=== PATIENT | female | born 1930 | race Caucasian/White ===

== ENCOUNTER 2016-05-01 09:15 | Observation (INO) ==
--- NOTE | 2016-05-01 09:41 | Emergency Department Note ---
Disposition Clinical Impression: Pneumonia, Headache, Weakness, Knee pain, right, Hypoxemia, Frail elderly, UTI (urinary tract infection), Abnormal EKG, Elevated blood pressure reading Disposition: Admitted As Inpatient Condition: Fair Referrals: NO,PCP [Primary Care Provider] - Forms: Work/School Release, ED Satisfaction Letter General Adult HPI - General Chief complaint: ED General Medical Stated complaint: right leg pain/JEROME Time Seen by Provider: 05/01/16 09:38 Source: EMS Limitations: no limitations - History of Present Illness HPI Narrative: 85-year-old female from assisted living reports in the ER via EMS. She came in with her daughter. There are concerns that the patient has knee pain and a headache. The patient describes a cough and general weakness. She is usually very social and active but is been weaker over the last few days. There is no history of syncope or fall. No trauma. No chest pain or coughing of blood. No leg swelling. No fevers. There is no strip for insurance of breath. She has had intermittent headaches over the last few weeks. Mostly on the right side. There is been no trouble moving the arms or legs independently, no unilateral numbness or weakness or dysarthria or confusion. The patient reports she was recently extensively evaluated and had an MRI of her brain and her daughter reports that the patient's only medical problems or reflux and hypertension. There is no history of CAD CHF COPD or oxygen requirement. The patient has not had previous strokes or DVT or PE. The patient has not had any urinary symptoms. There is no history of acute back pain or fall. Generalized weakness associated with a cough headache and right lower extremity pain particularly about the knee are reported. There is been no coldness blueness numbness or weakness the arms or legs. Pain Scale: 7 - Related Data Home Medications Medication Instructions Recorded Confirmed Amlodipine [Norvasc] 5 mg PO DAILY 05/01/16 05/01/16 Aspirin 325 mg PO DAILY 05/01/16 05/01/16 Cholecalciferol (D-3) [Vitamin D] 1,000 unit PO DAILY 05/01/16 05/01/16 Cyanocobalamin (Vitamin B-12) 1,000 mcg SL DAILY 05/01/16 05/01/16 [Vitamin B-12] Omeprazole [PriLOSEC] 20 mg PO BID 05/01/16 05/01/16 Allergies Allergy/AdvReac Type Severity Reaction Status Date / Time No Known Allergies Allergy Verified 05/01/16 09:16 All systems ED: reviewed and negative except as stated. Past Medical History - Past Medical History Medical history: Reports: fibromyalgia, GERD, hypertension Psychiatric history: Reports: no psych history - Social History Smoking Status: Never smoker Smokeless Tobacco Status: No Alcohol use: Reports: none Drug use: Reports: none Physical Exam - General Limitations: no limitations General appearance: alert, in no apparent distress - Head Head exam: atraumatic, normocephalic, normal inspection - Eye Eye exam: Present: normal appearance, PERRL, EOMI - ENT ENT exam: normal exam, normal oropharynx, mucous membranes moist - Neck Neck exam: Present: normal inspection, full ROM, trachea midline. Absent: tenderness, meningismus - Chest Chest inspection: Present: symmetric chest wall rise. Absent: tenderness - Respiratory Respiratory exam: Present: normal lung sounds bilaterally. Absent: respiratory distress - Cardiovascular Cardiovascular exam: Present: regular rate, normal rhythm, normal heart sounds - Abdominal Exam Abdominal exam: Present: soft, Non-Tender, normal bowel sounds. Absent: tenderness, distention, guarding, rebound, rigidity, trauma, pulsatile mass - Extremities Exam Extremities exam: Present: normal inspection, normal capillary refill, other ( All extremities are warm and well perfused and atraumatic with good muscle strength and sensation throughout. There is some pain at the right knee without evidence of joint stability or trauma. There is a good range of motion throughout all the major joints in all 4 extremities apart from the right knee. There is no evidence of acute neuromuscular or neurovascular abnormality in any extremity.). Absent: pedal edema, joint swelling, calf tenderness - Expanded Lower Extremity Exam Lower leg exam: Absent: Homans' sign Neurovascular/Tendon exam: Absent: pulse deficit, motor deficit, sensory deficit , tendon deficit, extremity cold to touch, pallor - Back Exam Back exam: Present: normal inspection, full ROM. Absent: tenderness, CVA tenderness (R), CVA tenderness (L), vertebral tenderness - Neurological Exam Neurological exam: Present: alert, oriented X3, CN II-XII intact. Absent: motor sensory deficit - Psychiatric Psychiatric exam: Present: normal affect, normal mood - Skin Skin exam: Present: warm, dry, intact, normal color. Absent: rash, cyanosis, diaphoresis, erythema, pallor, mottled Course Vital Signs Temperature 98 F 05/01/16 09:17 Pulse Rate 82 05/01/16 09:17 Respiratory Rate 18 05/01/16 09:17 Blood Pressure 151/69 05/01/16 09:17 O2 Sat by Pulse Oximetry 90 L 05/01/16 09:17 Temperature 98 F 05/01/16 09:22 Pulse Rate 82 05/01/16 09:22 Respiratory Rate 18 05/01/16 09:22 Blood Pressure 151/69 05/01/16 09:22 O2 Sat by Pulse Oximetry 90 L 05/01/16 09:22 Oxygen Delivery Oxygen Delivery Room Air Medical Decision Making - MDM Narrative Medical decision making narrative: The patient is elderly, her oxygen saturations on room air were as low as 89%, oxygen was supplied, she appears to have pneumonitis. The patient complained of a headache, no focal neurologic defects, or positive findings on CT scan are noted. She has had some knee pain, it seems to be musculoskeletal/mechanical. The daughter reports the patient was walking around a lot a few days ago. She did not fall or injure herself. Given the patient is elderly, has significant hypoxemia, has been weak, and appears to have pneumonitis, I think it would be appropriate to admit the patient to the hospital. I reviewed the case with the hospitalist on-call. - Lab Data Lab results reviewed: Yes I reviewed the patient's lab results. Result diagrams: 05/01/16 10:56 05/01/16 10:56 Lab Results 05/01/16 05/01/16 05/01/16 Range/Units 09:55 10:56 10:56 WBC 8.0 (4.3-11.1) K/mcL RBC 5.08 H (3.82-4.97) M/mcL Hgb 14.0 (11.5-15.4) g/dL Hct 43.2 (35.3-44.9) % MCV 85.0 (83.0-100.0) fL MCH 27.6 L (28.0-33.3) pg MCHC 32.4 (31.6-35.5) g/dL RDW 12.9 (11.5-14.5) % Plt Count 303 (140-400) K/mcL MPV 10.4 (9.4-12.4) fL Immature Gran % 0.4 (0-4) % Seg Neutrophils % 71.2 % Lymphocytes % 18.6 % Monocytes % 7.2 % Eosinophils % 2.0 % Basophils % 0.6 % Neutrophils # 5.7 (1.6-8.9) K/mcL Lymphocytes # 1.5 (0.6-4.6) K/mcL Monocytes # 0.6 (0.0-1.3) K/mcL Eosinophils # 0.2 (0.0-0.6) K/mcL Basophils # 0.1 (0.0-0.2) K/mcL Sodium (136-145) mEq/L Potassium (3.5-4.5) mEq/L Chloride (98-109) mEq/L Carbon Dioxide (19-29) mEq/L BUN (7-20) mg/dL Creatinine (0.57-1.11) mg/dL Est GFR ( Amer) (> 60) Est GFR (Non-Af Amer) (> 60) BUN/Creatinine Ratio (6-26) Glucose (70-99) mg/dL Calculated Osmolality (280-300) Lactic Acid (0.5-2.2) mmol/L Calcium (8.6-10.8) mg/dL Phosphorus (2.3-4.7) mg/dL Magnesium (1.6-2.6) mg/dL Total Bilirubin (0.2-1.2) mg/dL AST (5-34) Units/L ALT (0-55) Units/L Alkaline Phosphatase (38-126) Units/L Creatine Kinase (29-168) Units/L Troponin I 0.01 (0-0.03) ng/mL C-Reactive Protein (Less than 5) mg/L B-Natriuretic Peptide (0-100) pg/mL Serum Total Protein (6.0-8.3) g/dL Albumin (3.5-5.0) g/dL Globulin (2.4-3.5) g/dL Albumin/Globulin Ratio (1.1-2.2) Urine Color Yellow (Yellow) Urine Clarity Cloudy A (Clear) Urine pH 6.5 (5.0-8.0) pH Units Ur Specific [place] 1.016 (1.010-1.025) Urine Protein Negative (Neg-Trace) mg/dL Urine Glucose (UA) Normal (Normal) mg/dL Urine Ketones Negative (Negative) mg/dL Urine Blood Negative (Negative) Urine Nitrite Negative (Negative) Urine Bilirubin Negative (Negative) Urine Urobilinogen Normal (Normal) mg/dL Ur Leukocyte Esterase Moderate H (Negative) Urine Microscopic RBC 0-3 (0-3) per hpf Urine Microscopic WBC 15-30 H (0-3) per hpf Ur Squamous Epith Cells Many H (None-Few) per lpf Urine Bacteria None Seen (None-Few) per hpf Hyaline Casts None Seen (None-Few) per lpf Ur Culture Indicated? YES A (NO) 05/01/16 05/01/16 05/01/16 Range/Units 10:56 10:56 10:56 WBC (4.3-11.1) K/mcL RBC (3.82-4.97) M/mcL Hgb (11.5-15.4) g/dL Hct (35.3-44.9) % MCV (83.0-100.0) fL MCH (28.0-33.3) pg MCHC (31.6-35.5) g/dL RDW (11.5-14.5) % Plt Count (140-400) K/mcL MPV (9.4-12.4) fL Immature Gran % (0-4) % Seg Neutrophils % % Lymphocytes % % Monocytes % % Eosinophils % % Basophils % % Neutrophils # (1.6-8.9) K/mcL Lymphocytes # (0.6-4.6) K/mcL Monocytes # (0.0-1.3) K/mcL Eosinophils # (0.0-0.6) K/mcL Basophils # (0.0-0.2) K/mcL Sodium 140 (136-145) mEq/L Potassium 4.1 (3.5-4.5) mEq/L Chloride 105 (98-109) mEq/L Carbon Dioxide 24 (19-29) mEq/L BUN 9 (7-20) mg/dL Creatinine 0.81 (0.57-1.11) mg/dL Est GFR ( Amer) > 60 (> 60) Est GFR (Non-Af Amer) > 60 (> 60) BUN/Creatinine Ratio 11 (6-26) Glucose 104 H (70-99) mg/dL Calculated Osmolality 289 (280-300) Lactic Acid 1.5 (0.5-2.2) mmol/L Calcium 9.5 (8.6-10.8) mg/dL Phosphorus 3.9 (2.3-4.7) mg/dL Magnesium 2.0 (1.6-2.6) mg/dL Total Bilirubin 0.5 (0.2-1.2) mg/dL AST 21 (5-34) Units/L ALT 26 (0-55) Units/L Alkaline Phosphatase 63 (38-126) Units/L Creatine Kinase 31 (29-168) Units/L Troponin I (0-0.03) ng/mL C-Reactive Protein 1 (Less than 5) mg/L B-Natriuretic Peptide 33 (0-100) pg/mL Serum Total Protein 7.5 (6.0-8.3) g/dL Albumin 3.8 (3.5-5.0) g/dL Globulin 3.7 H (2.4-3.5) g/dL Albumin/Globulin Ratio 1.0 L (1.1-2.2) Urine Color (Yellow) Urine Clarity (Clear) Urine pH (5.0-8.0) pH Units Ur Specific [place] (1.010-1.025) Urine Protein (Neg-Trace) mg/dL Urine Glucose (UA) (Normal) mg/dL Urine Ketones (Negative) mg/dL Urine Blood (Negative) Urine Nitrite (Negative) Urine Bilirubin (Negative) Urine Urobilinogen (Normal) mg/dL Ur Leukocyte Esterase (Negative) Urine Microscopic RBC (0-3) per hpf Urine Microscopic WBC (0-3) per hpf Ur Squamous Epith Cells (None-Few) per lpf Urine Bacteria (None-Few) per hpf Hyaline Casts (None-Few) per lpf Ur Culture Indicated? (NO) - Radiology Data Radiology results reviewed: Yes I reviewed the patient's radiology results.
[2016-05-01 10:01] LABS: Bilirubin,Urine Negative (Negative); Blood,Urine Negative (Negative); Clarity,Urine Cloudy (Clear); Color,Urine Yellow (Yellow); Glucose,Urine (UA) Normal (Normal); Ketones,Urine Negative (Negative); Leukocyte Esterase,Urine Moderate (Negative); Nitrite,Urine Negative (Negative); PH,Urine 6.5 pH Units (5.0-8.0); Protein,Urine Negative (Neg-Trace); Specific Gravity,Urine 1.016 (1.010-1.025); Urobilinogen,Urine Normal (Normal)
[2016-05-01 10:03] LABS: Bacteria,Urine None Seen per hpf (None-Few); Hyaline Casts,Urine None Seen per lpf (None-Few); RBC,Urine 0-3 per hpf (0-3); Squamous Epithelial Cell,Urine Many per lpf (None-Few); WBC,Urine 15-30 per hpf (0-3)
[2016-05-01] MEDS ORDERED: 0.9 % Sodium Chloride 1,000 ML IVC ONE (11:09)
[2016-05-01] MEDS ORDERED: Levofloxacin 750 MG/150 ML 750 MG/150 ML BAG IVPB ONE (11:09)
[2016-05-01 11:18] LABS: Basophils # 0.1 K/mcL (0.0-0.2); Basophils % 0.6 %; Eosinophils # 0.2 K/mcL (0.0-0.6); Hematocrit 43.2 % (35.3-44.9); Immature Granulocytes % 0.4 % (0-4); Lymphocytes # 1.5 K/mcL (0.6-4.6); Lymphocytes % 18.6 %; Mean Corpuscular HGB Conc 32.4 g/dL (31.6-35.5); Mean Corpuscular Hemoglobin 27.6 pg (28.0-33.3); Mean Platelet Volume 10.4 fL (9.4-12.4); Monocytes # 0.6 K/mcL (0.0-1.3); Monocytes % 7.2 %; Neutrophils # 5.7 K/mcL (1.6-8.9); Platelet Count 303 K/mcL (140-400); Red Blood Count 5.08 M/mcL (3.82-4.97); Red Cell Distribution Width 12.9 % (11.5-14.5); Segmented Neutrophils % 71.2 %
[2016-05-01 11:43] LABS: Alanine Aminotransferase 26 Units/L (0-55); Albumin 3.8 g/dL (3.5-5.0); Alkaline Phosphatase 63 Units/L (38-126); Aspartate Amino Transferase 21 Units/L (5-34); BUN/Creatinine Ratio 11 (6-26); Bilirubin,Total 0.5 mg/dL (0.2-1.2); Blood Urea Nitrogen 9 mg/dL (7-20); C-Reactive Protein 1 mg/L (Less than 5); Calcium 9.5 mg/dL (8.6-10.8); Carbon Dioxide 24 mEq/L (19-29); Chloride 105 mEq/L (98-109); Creatine Kinase 31 Units/L (29-168); Globulin 3.7 g/dL (2.4-3.5); Glucose 104 mg/dL (70-99); Osmolality,Calculated 289 (280-300); Phosphorous 3.9 mg/dL (2.3-4.7); Potassium 4.1 mEq/L (3.5-4.5); Sodium 140 mEq/L (136-145); Total Protein 7.5 g/dL (6.0-8.3); eGFR For African Americans > 60 (> 60); eGFR For Non-African Americans > 60 (> 60)
[2016-05-01] MEDS ORDERED: Naloxone 0.4 MG/ML INJ IVP PRN (13:06)
--- NOTE | 2016-05-01 13:41 | Internal Med History&Physical ---
<Lina Moran M - Last Filed: 05/01/16 22:38> Date of Encounter: 05/01/16 Time of Encounter: 13:38 Assessment and Plan (1) Pneumonia Current visit: Yes Status: Acute Patient presented with weakness and productive cough. She was satting 89-90% on room air. CXR revealed Left lower lobe pneumonia. IVPB Levaquin daily titrate O2 to maintain oxygen saturation > 92% IV fluids 0.9NS at 100mL/hr Qualifiers: Pneumonia type: due to unspecified organism Laterality: left Lung location: lower lobe of lung Qualified Code(s): J18.1 - Lobar pneumonia, unspecified organism (2) Headache Current visit: Yes Status: Acute She reports that when she woke up this morning she had a headache on the right side of her head, her right arm hurt in her right leg hurt as well. She also reports she just did not feel like herself. Patient reports head now resolved. Head CT negative for acute abnormality PRN tyelenol for headache Qualifiers: Headache type: unspecified Headache chronicity pattern: acute headache Intractability: not intractable Qualified Code(s): R51 - Headache (3) Hypoxemia Current visit: Yes Status: Acute Patient presented with productive cough. Found to be satting 89-90% on room air. No history of COPD. CXR revealed Left lower lobe opacity. Saturations improved to 98-100% on 2L NC Will treat pneumonia with IVPB levaquin. titrate oxygen to maintain O2 saturation > 92%. (4) Knee pain, right Current visit: Yes Status: Acute Patient reports waking up this morning with pain in right leg, right arm and right head. She reports a history of fibromyalgia. Xray of right knee and femur showed no acute osseous abnormality, and moderate right hip degenerative changes with mild to moderate right knee degenerative changes. Tylenol PRN for pain Qualifiers: Chronicity: acute Qualified Code(s): M25.561 - Pain in right knee (5) UTI (urinary tract infection) Current visit: Yes Status: Suspected Patient denies any dysuria. UA showed positive leuks, Positive WBC, but also positive epithelials; may be contaminated. Await culture results. Qualifiers: Urinary tract infection type: acute cystitis Hematuria presence: without hematuria Qualified Code(s): N30.00 - Acute cystitis without hematuria (6) Weakness Current visit: Yes Status: Acute Patient reports waking up with generalized weakness and pain in her right head, right arm and right leg. She denies any fall or injury. She reports history of fibromyalgia, but does not take anything for it anymore. She has a family history of CVA, with both parents cause of . On exam, equal strength bilaterally, steady gain, negative romberg. Weakness likely related to her diagnosis of pneumonia, but will rule out CVA. 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 Correa is a 85 year old female with hypertension, GERD, fibromyalgia who is brought in this morning from her assisted living facility by her daughter with complaints of headache, knee pain, weakness. She reports she was feeling well and last night felt like she had knee pain this morning when she woke up she had a headache on the right side of her head, her right leg hurt, and she felt weak all over. She reports she did not feel like herself, but was unable to express what that meant. She denies chest pain, palpitations, shortness of breath. She does reports she has been coughing the last several days and cough is productive of thick yellow sputum. She denies any fever, chills, sweats. Evaluation in the emergency room revealed that she was hypoxic, satting 89-90% on room air. Head CT was obtained and showed no acute abnormality. X-rays of the right knee and right femur. Chest x-ray showed left lower lobe opacity. White blood cell count was normal at 8.0. Patient was afebrile. EKG showed sinus rhythm. On exam, patient alert and oriented, in no distress. Lung with mild rhonchi on the left. Heart with regular rate and rhythm. She is satting 98-100% on 2L NC. Past Med Surg Social Fam HX - Past Medical History Medical history: fibromyalgia, GERD, hypertension Psychiatric history: no psych history - Past Surgical History Surgical History: breast surgery (breast reduction), cholecystectomy, other ( bladder sling) - Social History Smoking Status: Never smoker Smokeless Tobacco Status: No Alcohol use: none Drug use: none Current living situation: Assisted Living - Family History Mother Living Status: Age at : 85 Cause of : CVA Father Living Status: Cause of : CVA Brother Living Status: Cause of : cancer Internal Medicine - H&P: Meds Amlodipine [Norvasc] 5 mg PO DAILY 05/01/16 [History] Aspirin 325 mg PO DAILY 05/01/16 [History] Cholecalciferol (D-3) [Vitamin D] 1,000 unit PO DAILY 05/01/16 [History] Cyanocobalamin (Vitamin B-12) [Vitamin B-12] 1,000 mcg SL DAILY 05/01/16 [ History] Omeprazole [PriLOSEC] 20 mg PO BID 05/01/16 [History] Allergies No Known Allergies Allergy (Verified 05/01/16 09:16) All Systems PM: A 10-system review of systems was performed and is negative for pertinent findings except as documented above in the HPI. - Constitutional Constitutional: weakness, no chills, no fever(s), no night sweats - EENT Eyes: no change in vision, no discharge, no pain, no photophobia Ears: no ear discharge, no ear pain, no tinnitus Nose, mouth and throat: no dysphagia, no nasal discharge, no neck pain, no sore throat - Cardiovascular Cardiovascular ROS IM: no chest pain, no diaphoresis, no dyspnea, no lightheadedness, no palpitations, no syncope - Respiratory Respiratory: cough, chest congestion, excessive phlegm production, no dyspnea, no pain on inspiration - Gastrointestinal Gastrointestinal: no abdominal pain, no diarrhea, no hematemesis, no hematochezia, no melena, no nausea, no vomiting - Genitourinary Genitourinary: no change in urinary stream, no dysuria, no flank pain, no hematuria - Musculoskeletal Musculoskeletal ROS IM: arthralgias (right knee and leg pain, right arm pain), no numbness, no tingling - Integumentary Integumentary IM: no rash, no unusual bruising - Neurological Neurological ROS: headache(s), no confusion, no convulsions, no focal weakness, no numbness, no tingling, no tremor(s) - Hematologic/Lymphatic Hematologic/Lymphatic: no easy bruising - Constitutional Vitals: Temp Pulse Resp BP Pulse Ox 98 F 82 18 138/74 90 L 05/01/16 09:22 05/01/16 09:22 05/01/16 12:54 05/01/16 12:54 05/01/16 09:22 General appearance: Present: A&O X 3, no acute distress - Head Head exam: Present: atraumatic, normocephalic - Eye Eye exam: Present: PERRL, conjuntiva pink, sclera anicteric Pupils: Present: PERRL - Neck Neck exam general surgery: Present: supple, trachea midline. Absent: lymphadenopathy - Respiratory Respiratory exam: Present: rhonchi (expiratory). Absent: accessory muscle use, rales, wheezes - Cardiovascular Cardiovascular exam: Present: RRR, +S1, +S2. Absent: diastolic murmur, gallop, rubs, systolic murmur - GI/Abdominal GI/Abdominal exam: Present: normal bowel sounds, soft, no peritoneal signs. Absent: distended, tenderness - Extremities Exam Extremities exam: Present: warm, radial pulses palpable and symetrical. Absent : calf tenderness, cyanotic, pedal edema - Neurological Exam Neurological exam: Present: CN II-XII intact, oriented X3, no focal deficits. Absent: pronater drift, facial droop, speech deficit - Skin Skin exam: Present: dry, intact Internal Med - H&P Results - Labs CBC & Chem 7: 05/01/16 10:56 05/01/16 10:56 Labs: All Lab Results (24 Hours) 05/01/16 05/01/16 05/01/16 Range/Units 09:55 10:56 10:56 WBC 8.0 (4.3-11.1) K/mcL RBC 5.08 H (3.82-4.97) M/mcL Hgb 14.0 (11.5-15.4) g/dL Hct 43.2 (35.3-44.9) % MCV 85.0 (83.0-100.0) fL MCH 27.6 L (28.0-33.3) pg MCHC 32.4 (31.6-35.5) g/dL RDW 12.9 (11.5-14.5) % Plt Count 303 (140-400) K/mcL MPV 10.4 (9.4-12.4) fL Immature Gran % 0.4 (0-4) % Seg Neutrophils % 71.2 % Lymphocytes % 18.6 % Monocytes % 7.2 % Eosinophils % 2.0 % Basophils % 0.6 % Neutrophils # 5.7 (1.6-8.9) K/mcL Lymphocytes # 1.5 (0.6-4.6) K/mcL Monocytes # 0.6 (0.0-1.3) K/mcL Eosinophils # 0.2 (0.0-0.6) K/mcL Basophils # 0.1 (0.0-0.2) K/mcL Sodium (136-145) mEq/L Potassium (3.5-4.5) mEq/L Chloride (98-109) mEq/L Carbon Dioxide (19-29) mEq/L BUN (7-20) mg/dL Creatinine (0.57-1.11) mg/dL Est GFR ( Amer) (> 60) Est GFR (Non-Af Amer) (> 60) BUN/Creatinine Ratio (6-26) Glucose (70-99) mg/dL Calculated Osmolality (280-300) Lactic Acid (0.5-2.2) mmol/L Calcium (8.6-10.8) mg/dL Phosphorus (2.3-4.7) mg/dL Magnesium (1.6-2.6) mg/dL Total Bilirubin (0.2-1.2) mg/dL AST (5-34) Units/L ALT (0-55) Units/L Alkaline Phosphatase (38-126) Units/L Creatine Kinase (29-168) Units/L Troponin I 0.01 (0-0.03) ng/mL C-Reactive Protein (Less than 5) mg/L B-Natriuretic Peptide (0-100) pg/mL Serum Total Protein (6.0-8.3) g/dL Albumin (3.5-5.0) g/dL Globulin (2.4-3.5) g/dL Albumin/Globulin Ratio (1.1-2.2) Urine Color Yellow (Yellow) Urine Clarity Cloudy A (Clear) Urine pH 6.5 (5.0-8.0) pH Units Ur Specific [place] 1.016 (1.010-1.025) Urine Protein Negative (Neg-Trace) mg/dL Urine Glucose (UA) Normal (Normal) mg/dL Urine Ketones Negative (Negative) mg/dL Urine Blood Negative (Negative) Urine Nitrite Negative (Negative) Urine Bilirubin Negative (Negative) Urine Urobilinogen Normal (Normal) mg/dL Ur Leukocyte Esterase Moderate H (Negative) Urine Microscopic RBC 0-3 (0-3) per hpf Urine Microscopic WBC 15-30 H (0-3) per hpf Ur Squamous Epith Cells Many H (None-Few) per lpf Urine Bacteria None Seen (None-Few) per hpf Hyaline Casts None Seen (None-Few) per lpf Ur Culture Indicated? YES A (NO) 05/01/16 05/01/16 05/01/16 Range/Units 10:56 10:56 10:56 WBC (4.3-11.1) K/mcL RBC (3.82-4.97) M/mcL Hgb (11.5-15.4) g/dL Hct (35.3-44.9) % MCV (83.0-100.0) fL MCH (28.0-33.3) pg MCHC (31.6-35.5) g/dL RDW (11.5-14.5) % Plt Count (140-400) K/mcL MPV (9.4-12.4) fL Immature Gran % (0-4) % Seg Neutrophils % % Lymphocytes % % Monocytes % % Eosinophils % % Basophils % % Neutrophils # (1.6-8.9) K/mcL Lymphocytes # (0.6-4.6) K/mcL Monocytes # (0.0-1.3) K/mcL Eosinophils # (0.0-0.6) K/mcL Basophils # (0.0-0.2) K/mcL Sodium 140 (136-145) mEq/L Potassium 4.1 (3.5-4.5) mEq/L Chloride 105 (98-109) mEq/L Carbon Dioxide 24 (19-29) mEq/L BUN 9 (7-20) mg/dL Creatinine 0.81 (0.57-1.11) mg/dL Est GFR ( Amer) > 60 (> 60) Est GFR (Non-Af Amer) > 60 (> 60) BUN/Creatinine Ratio 11 (6-26) Glucose 104 H (70-99) mg/dL Calculated Osmolality 289 (280-300) Lactic Acid 1.5 (0.5-2.2) mmol/L Calcium 9.5 (8.6-10.8) mg/dL Phosphorus 3.9 (2.3-4.7) mg/dL Magnesium 2.0 (1.6-2.6) mg/dL Total Bilirubin 0.5 (0.2-1.2) mg/dL AST 21 (5-34) Units/L ALT 26 (0-55) Units/L Alkaline Phosphatase 63 (38-126) Units/L Creatine Kinase 31 (29-168) Units/L Troponin I (0-0.03) ng/mL C-Reactive Protein 1 (Less than 5) mg/L B-Natriuretic Peptide 33 (0-100) pg/mL Serum Total Protein 7.5 (6.0-8.3) g/dL Albumin 3.8 (3.5-5.0) g/dL Globulin 3.7 H (2.4-3.5) g/dL Albumin/Globulin Ratio 1.0 L (1.1-2.2) Urine Color (Yellow) Urine Clarity (Clear) Urine pH (5.0-8.0) pH Units Ur Specific [place] (1.010-1.025) Urine Protein (Neg-Trace) mg/dL Urine Glucose (UA) (Normal) mg/dL Urine Ketones (Negative) mg/dL Urine Blood (Negative) Urine Nitrite (Negative) Urine Bilirubin (Negative) Urine Urobilinogen (Normal) mg/dL Ur Leukocyte Esterase (Negative) Urine Microscopic RBC (0-3) per hpf Urine Microscopic WBC (0-3) per hpf Ur Squamous Epith Cells (None-Few) per lpf Urine Bacteria (None-Few) per hpf Hyaline Casts (None-Few) per lpf Ur Culture Indicated? (NO) <Kane Simmons - Last Filed: 05/02/16 15:25> Date of Encounter: 05/02/16 Internal Medicine - H&P: HPI History of present illness: Ms. Correa is a 85 year old female All Systems PM: A 10-system review of systems was performed and is negative for pertinent findings except as documented above in the HPI. - Constitutional Vitals: Temp Pulse Resp BP Pulse Ox 97.8 F 78 18 167/65 98 05/02/16 04:00 05/02/16 08:00 05/02/16 08:00 05/02/16 08:00 05/02/16 08:00 Internal Med - H&P Results - Labs CBC & Chem 7: 05/02/16 05:57 05/02/16 05:57 Labs: Short CBC 05/02/16 Range/Units 05:57 WBC 6.2 (4.3-11.1) K/mcL Hgb 12.5 D (11.5-15.4) g/dL Hct 37.5 (35.3-44.9) % Plt Count 275 (140-400) K/mcL Neutrophils # 3.4 (1.6-8.9) K/mcL BMP 05/02/16 05:57 Sodium 140 Potassium 4.2 Chloride 108 Carbon Dioxide 24 BUN 10 Creatinine 0.81 Glucose 98 Calcium 8.7 Cardiac Enzymes 05/01/16 05/01/16 Range/Units 16:34 22:32 Troponin I 0.01 0.01 (0-0.03) ng/mL - Attending Attestation I examined this patient and my medical decision-making was reviewed with the Advanced Practice Provider. I agree with the documented findings, disposition and treatment plan as described except to the extent set forth below. Patient presented to the hospital due to shortness of breath. On exam she is in no distress heart is regular lungs are diminished and coarse. Plan we will treat the patient with IV antibiotics for pneumonia and oxygen by nasal cannula for hypoxia.
[2016-05-01] MEDS: 0.9 % Sodium Chloride 1,000 ML IVC SCH (15:04)
[2016-05-01] MEDS: amLODIPine 5 MG TABLET PO SCH (15:15)
[2016-05-01] MEDS: Aspirin 325 MG TABLET PO SCH (15:16)
[2016-05-02] MEDS: 0.9 % Sodium Chloride 1,000 ML IVC SCH (02:01)
[2016-05-02] MEDS: *HR* Enoxaparin 40 MG/0.4 ML SYRINGE SQ SCH (06:18)
[2016-05-02 06:22] LABS: Basophils % 0.6 %; Eosinophils # 0.2 K/mcL (0.0-0.6); Eosinophils % 3.9 %; Hematocrit 37.5 % (35.3-44.9); Hemoglobin 12.5 g/dL (11.5-15.4); Immature Granulocytes % 0.3 % (0-4); Lymphocytes # 1.9 K/mcL (0.6-4.6); Lymphocytes % 30.3 %; Mean Corpuscular HGB Conc 33.3 g/dL (31.6-35.5); Mean Corpuscular Hemoglobin 29.1 pg (28.0-33.3); Mean Corpuscular Volume 87.2 fL (83.0-100.0); Mean Platelet Volume 10.7 fL (9.4-12.4); Monocytes # 0.6 K/mcL (0.0-1.3); Monocytes % 10.1 %; Neutrophils # 3.4 K/mcL (1.6-8.9); Platelet Count 275 K/mcL (140-400); Red Cell Distribution Width 13.1 % (11.5-14.5); Segmented Neutrophils % 54.8 %
[2016-05-02 06:29] LABS: BUN/Creatinine Ratio 12 (6-26); Blood Urea Nitrogen 10 mg/dL (7-20); Calcium 8.7 mg/dL (8.6-10.8); Carbon Dioxide 24 mEq/L (19-29); Chloride 108 mEq/L (98-109); Glucose 98 mg/dL (70-99); Osmolality,Calculated 289 (280-300); Potassium 4.2 mEq/L (3.5-4.5); Sodium 140 mEq/L (136-145); eGFR For African Americans > 60 (> 60); eGFR For Non-African Americans > 60 (> 60)
[2016-05-02] MEDS: amLODIPine 5 MG TABLET PO SCH (08:55)
[2016-05-02] MEDS: Cyanocobalamin (B-12) 1,000 MCG TABLET PO SCH (08:56)
[2016-05-02] MEDS: Aspirin 325 MG TABLET PO SCH (08:56)
[2016-05-02] MEDS: Cholecalciferol (D-3) 1,000 UNIT TABLET PO SCH (08:56)
--- NOTE | 2016-05-02 09:28 | ECHO - Doppler Report ---
Echocardiogram Name: Moira Correa Date of Study: 05/01/2016 Date: 1930 Ht: 63.0 in Medical Record#: [id number] Age: 85 Wt: 148.0 lb Gender: Female BSA: 1.7 Order #: [id number] Location: [facility] Room #: 2NE33 Reading Physician: Yamel Yo DO Light Bulb Tester: Jazmín Jamison Ordering Physician: Lina Moran CNP Primary Physician: None Indications: weakness Impressions: LVEF 65-70%. There is evidence of mild diastolic dysfunction of the left ventricle. Normal right ventricular size and function. No significant valvular dysfunction. No pulmonary hypertension. Left Ventricular Wall Motion: Rest Echo Findings All wall segments showed normal motion. Findings: Study Quality * Technically adequate exam. ECG Findings * Normal sinus rhythm. Left Ventricle * LVEF 65-70%. * Basal septal hypertrophy. No LVOTO. * Mild left ventricular diastolic dysfunction. Aortic Valve * No aortic regurgitation. * Trileaflet aortic valve. * Normal aortic valve structure. * No aortic stenosis. Mitral Valve * No mitral regurgitation. * Mild mitral annular calcification * Mitral valve not well visualized. * No mitral stenosis. Tricuspid Valve * Tricuspid valve not well visualized. * Trace tricuspid regurgitation. Pulmonic Valve * Pulmonic valve is not well visualized. * No pulmonic stenosis. * No pulmonic regurgitation. Pulmonary Artery * Pulmonary artery not well visualized. Left Atrium * Left atrium is not well visualized. Right Atrium * Normal right atrial size. Right Ventricle * Normal right ventricular structure and function. Interatrial Septum * Interatrial septum not well evaluated. Aorta * Normally sized aortic root. Pericardium * There is no pericardial effusion present. IVC * The IVC is not well evaluated. History Hypertension Measurements: BP: 151/ 69 2D Normal Values IVSd: 1.50 cm 0.6 - 1.0 cm LVIDd: 3.60 cm 3.7 - 5.6 cm LVPWd: 1.00 cm 0.6 - 1.1 cm LVIDs: 2.20 cm 1.5 - 3.6 cm AO: 2.10 cm < 4.0 cm LA: 3.30 cm 2.0 - 4.0cm %FS: 38.90 cm >25 % LA volume: 45 Mitral Valve Peak Velocity 1.12 m/sec Mean Velocity:.69 m/sec Peak Grad:5.00 mmHg Mean Grad:2.00 mmHg Pressure Time:92.00 msec Valve Area:2.39 cm2 Peak E:1.03 m/sec Peak A:1.08 m/sec E/A Ratio:1 Peak E' Lat Jose Eduardo:7.41 cm/s Peak E' Med Jose Eduardo:11.6 cm/s E/E' Lat Ratio:13.9 E/E' Med Ratio:8.9 Tricuspid Valve TV Regurg Peak Grad: 25.00mmHg TV Regurg Peak Jose Eduardo: 2.51m/sec Updated by Yamel Yo on 05/02/2016 9:21:07 AM electronically signed on 05/02/2016 9:21:51 AM with status of Final Wall Motion Elena: 1=Normal, 2=Hypokinesis, 3=Akinesis, 4=Dyskinesis, 5=Aneurysmal, 6=Hyperkinetic, X=Not Visualized (Blank)=Missing
--- NOTE | 2016-05-02 16:12 | Electrocardiograph Report ---
[address] [place] [address] Test Date: 2016-05-01 Pat Name: Moira Correa Department: 103 Room: 2NE33 Gender: F [employer] Attendant: : 1930 Requested By: Trung Patton Order Number: [id number] Reading MD: Souleymane Stark Measurements Intervals Maxwell Rate: 77 P: 42 MS: 187 QRS: -33 QRSD: 92 T: -9 QT: 352 QTc: 384 Interpretive Statements SINUS RHYTHM PATTERN CONSISTENT WITH PULMONARY DISEASE INFERIOR MYOCARDIAL INFARCTION, PROBABLY OLD BASELINE ARTIFACT Electronically Signed On 05-02-2016 16:10:37 EST by Souleymane Stark
--- NOTE | 2016-05-02 16:16 | Internal Med Progress Note ---
Date of Encounter: 05/02/16 Time of Encounter: 12:10 - Assessment and plan (1) Pneumonia Current Visit: Yes Status: Acute Assessment and plan: improving. No fever or leukocytosis. F/up blood cultures and continue IV Levaquin; supportive care; Qualifiers: Pneumonia type: due to unspecified organism Laterality: left Lung location: lower lobe of lung Qualified Code(s): J18.1 - Lobar pneumonia, unspecified organism (2) Hypoxemia Current Visit: Yes Status: Acute Assessment and plan: likely due to Pneumonia; improving O2 requirements; (3) Headache Current Visit: Yes Status: Chronic Assessment and plan: improving; Qualifiers: Headache type: unspecified Headache chronicity pattern: acute headache Intractability: not intractable Qualified Code(s): R51 - Headache (4) Essential hypertension Current Visit: Yes Status: Chronic (5) Fibromyalgia Current Visit: Yes Status: Chronic - Subjective Interval history: Reports feeling better; improving weakness and cough; no chest pain, shortness of breath; slight persistent headache; - Constitutional Vitals: Temp Pulse Resp BP Pulse Ox 97.8 F 78 18 167/65 98 05/02/16 04:00 05/02/16 08:00 05/02/16 08:00 05/02/16 08:00 05/02/16 08:00 General appearance: Present: A&O X 3, no acute distress - Respiratory Respiratory exam: Present: CTAB. Absent: accessory muscle use, rales, rhonchi, wheezes - Cardiovascular Cardiovascular exam: Present: RRR, +S1, +S2. Absent: diastolic murmur, gallop, rubs, systolic murmur - GI/Abdominal GI/Abdominal exam: Present: normal bowel sounds, soft, no peritoneal signs. Absent: distended, tenderness - Extremities Exam Extremities exam: Present: full ROM, warm, radial pulses palpable and symetrical. Absent: calf tenderness, cyanotic, pedal edema - Neurological Exam Neurological exam: Present: CN II-XII intact, oriented X3, no focal deficits. Absent: pronater drift, facial droop, speech deficit - Skin Skin exam: Present: dry, intact Internal Medicine: Result - Labs CBC & Chem 7: 05/02/16 05:57 05/02/16 05:57 Labs: Short CBC 05/02/16 Range/Units 05:57 WBC 6.2 (4.3-11.1) K/mcL Hgb 12.5 D (11.5-15.4) g/dL Hct 37.5 (35.3-44.9) % Plt Count 275 (140-400) K/mcL Neutrophils # 3.4 (1.6-8.9) K/mcL BMP 05/02/16 05:57 Sodium 140 Potassium 4.2 Chloride 108 Carbon Dioxide 24 BUN 10 Creatinine 0.81 Glucose 98 Calcium 8.7 Cardiac Enzymes 05/01/16 05/01/16 Range/Units 16:34 22:32 Troponin I 0.01 0.01 (0-0.03) ng/mL Consult Discharge Plan - Plan Referrals: NO,PCP [Primary Care Provider] -
--- NOTE | 2016-05-02 17:09 | Carotid Imaging Report ---
Carotid Duplex Patient Name:Moira Correa Order Number:[id number] Procedure Date:05/01/2016 Date:1Age:85 yrs Gender:Female Lt BP:138 / 74 mmHg Rt.BP:151 / 69 mmHgHeart Rate: Location:[facility] Room #: 2NE33 Sparker And Patcher:Jazmín Jamison Referring MD:Lina Moran, ELEMENTARY SPECIAL EDUCATION TEACHER supervisor diagnostic:None Reading MD:Bello Biggs MD , FACS Primary Indications:weakness Risk Factors Yes/No Hypertension Yes Impressions: Findings: Bilateral carotid system have nonstenotic plaque. Recommendations: After imaging the patient returned to their room. Findings Carotid Duplex: Right: The right proximal common carotid artery has a PSV of 73 cm/s and a EDV of 9 cm/s. The right mid common carotid artery has a PSV of 69 cm/s and a EDV of 11 cm/s. The right distal common carotid artery has a PSV of 67 cm/s and a EDV of 13 cm/s. The right bifurcation has a PSV of 76 cm/s and a EDV of 12 cm/s. There is nonstenotic plaque in the right proximal internal carotid artery with a PSV of 75 cm/s and a EDV of 19 cm/s. The right mid internal carotid artery has a PSV of 77 cm/s and a EDV of 19 cm/s. The right distal internal carotid artery has a PSV of 95 cm/s and a EDV of 19 cm/s. The right eca has a PSV of 103 cm/s and a EDV of 9 cm/s. The right vertebral artery has a PSV of 33 cm/s and a EDV of 7 cm/s. Left: The left proximal common carotid artery has a PSV of 77 cm/s and a EDV of 9 cm/s. The left mid common carotid artery has a PSV of 93 cm/s and a EDV of 15 cm/s. The left distal common carotid artery has a PSV of 68 cm/s and a EDV of 14 cm/s. The left bifurcation has a PSV of 67 cm/s and a EDV of 12 cm/s. There is nonstenotic plaque in the left proximal internal carotid artery with a PSV of 90 cm/s and a EDV of 19 cm/s. The left mid internal carotid artery has a PSV of 92 cm/s and a EDV of 19 cm/s. The left distal internal carotid artery has a PSV of 94 cm/s and a EDV of 22 cm/s. The left eca has a PSV of 111 cm/s. The left vertebral artery has a PSV of 34 cm/s and a EDV of 7 cm/s. Prior Study: No prior study available for comparison. Carotid Results Right PSV EDV Assessment Proximal CCA 73 9 Normal Mid CCA 69 11 Normal Distal CCA 67 13 Normal Bifurcation 76 12 Normal Proximal ICA 75 19 Non Stenotic Plaque Mid ICA 77 19 Normal Distal ICA 95 19 Normal ECA 103 9 Normal Vertebral Artery 33 7 Normal Left PSV EDV Assessment Proximal CCA 77 9 Normal Mid CCA 93 15 Normal Distal CCA 68 14 Normal Bifurcation 67 12 Normal Proximal ICA 90 19 Non Stenotic Plaque Mid ICA 92 19 Normal Distal ICA 94 22 Normal ECA 111 0 Normal Vertebral Artery 34 7 Normal Ratio's Right ICA/CCA Ratio: 1.38 ICA/CCA Values: 95/69 Left ICA/CCA Ratio: 1.01 ICA/CCA Values: 94/93 Updated by Bello Biggs MD, FACS on 05/02/2016 5:04:59 PM Bello Biggs MD electronically signed on 05/02/2016 5:05:40 PM with status of Final
[2016-05-03] MEDS: *HR* Enoxaparin 40 MG/0.4 ML SYRINGE SQ SCH (06:23)
[2016-05-03 08:29] VITALS: BP 152/74
[2016-05-03] MEDS: Cyanocobalamin (B-12) 1,000 MCG TABLET PO SCH (09:01)
[2016-05-03] MEDS: amLODIPine 5 MG TABLET PO SCH (09:01)
[2016-05-03] MEDS: Aspirin 325 MG TABLET PO SCH (09:01)
[2016-05-03] MEDS: Cholecalciferol (D-3) 1,000 UNIT TABLET PO SCH (09:01)
--- NOTE | 2016-05-03 09:29 | Discharge Summary ---
Date of Encounter: 05/03/16 Time of Encounter: 09:27 - Discharge Diagnosis (1) Pneumonia Priority: Primary Status: Acute Qualifiers: Pneumonia type: due to unspecified organism Laterality: left Lung location: lower lobe of lung Qualified Code(s): J18.1 - Lobar pneumonia, unspecified organism (2) Hypoxemia Priority: Primary Status: Resolved (3) Headache Priority: Primary Status: Chronic Qualifiers: Headache type: unspecified Headache chronicity pattern: acute headache Intractability: not intractable Qualified Code(s): R51 - Headache (4) Essential hypertension Priority: Secondary Status: Chronic (5) Fibromyalgia Priority: Secondary Status: Chronic - Discharge Medications Prescriptions: Levofloxacin [Levaquin] 500 mg PO DAILY #5 tablet Home Medications: Amlodipine [Norvasc] 5 mg PO DAILY 05/01/16 [History] Aspirin 325 mg PO DAILY 05/01/16 [History] Cholecalciferol (D-3) [Vitamin D] 1,000 unit PO DAILY 05/01/16 [History] Cyanocobalamin (Vitamin B-12) [Vitamin B-12] 1,000 mcg SL DAILY 05/01/16 [ History] Omeprazole [PriLOSEC] 20 mg PO BID 05/01/16 [History] Levofloxacin [Levaquin] 500 mg PO DAILY #5 tablet 05/03/16 [Rx] Allergies/Adverse Reactions: Allergies No Known Allergies Allergy (Verified 05/01/16 09:16) Procedures/tests Complete & Pending: Procedures Performed prior 72 hours Category Date Time Status EV carotid duplex imaging BI Routine Y 05/01/16 14:16 Completed EV echocardiogram Routine Y 05/01/16 14:16 Completed Date of admission: 05/01/16 12:32 Primary care physician: PCP NO Consults: 05/01/16 15:02 Consult to Senior Health Educator [CONS] Routine Reason for SW Consult: [facility] independent living Discharging clinician: Sheila Overton Anticipated date of discharge: 05/03/16 - Patient Status Disposition: Home, Self-Care Condition: Fair Functional capacity at discharge: independent ambulation Overall status at discharge: patient is progressing back to baseline - Discharge Instructions Instructions: Levofloxacin (By mouth) Follow Up With: Souleymane Reyna MD [Non-Partnered Physician] - 05/10/16 2:30 pm (please bring discharge info to your appoinmtent ) Additional Instructions: F/up with PCP in 1-2 weeks - Diet and Activity Activity: resume usual activities as tolerated Diet: low fat, low cholesterol, low salt diet Hospital course: Ms. Correa is a 85 year old female with the above medical problems, admitted with shortness of breath and cough. She was noted to have left lower lobe Pneumonia on chest XRay and started on IV hydration and antibiotics along with supplemental O2 to which she responded well. She is currently not requiring supplementAL o2 AND IS DOING WELL, MEDICALLY STABLE FOR DISCHARGE HOME. - Time Spent with Patient Total time spent providing and/or coordinating discharge services: Greater than 30 minutes (45 min) - Constitutional Vitals: Temp Pulse Resp BP Pulse Ox 97.7 F 80 17 152/74 99 05/03/16 04:26 05/03/16 08:00 05/03/16 08:00 05/03/16 08:00 05/03/16 08:00 General appearance: Present: A&O X 3, answers questions appropriately - Respiratory Respiratory exam: Present: CTAB. Absent: accessory muscle use, rales, rhonchi, wheezes - Cardiovascular Cardiovascular exam: Present: RRR, +S1, +S2. Absent: diastolic murmur, gallop, rubs, systolic murmur
[2016-05-03] MEDS ORDERED: Levofloxacin 750 MG/150 ML 750 MG/150 ML BAG IVPB SCH (12:00)
== END 2016-05-03 12:13 | disposition home or self-care (01) ==
LOC: EMEROO 09:15 → 2NENU 09:15 → SUATTDRO 12:32 → 2NENU 14:40
PROVIDERS: ADMIT Internal Medicine; ATTEND Internal Medicine

== ENCOUNTER 2017-10-22 10:18 | Observation (INO) ==
[2017-10-22] MEDS ORDERED: Ondansetron 4 MG/2 ML VIAL IVP ONE (10:44)
--- NOTE | 2017-10-22 10:48 | Emergency Department Note ---
Disposition Clinical Impression: General weakness Pneumonia Qualifiers: Pneumonia type: due to unspecified organism Laterality: left Lung location: unspecified part of lung Qualified Code(s): J18.9 - Pneumonia, unspecified organism Disposition: Admitted As Inpatient Condition: Fair Referrals: Souleymane Reyna MD [Primary Care Provider] - Forms: ED Satisfaction Letter Time of Disposition: 11:34 General Adult HPI - General Chief complaint: ED Weakness Stated complaint: weakness Time Seen by Provider: 10/22/17 10:32 Source: patient, family, EMS Mode of arrival: EMS Limitations: no limitations Nursing Notes Reviewed: Yes Vital Signs Reviewed: Yes - History of Present Illness HPI Narrative: 87-year-old female with a history of fibromyalgia, hypertension presents for evaluation of generalized weakness. Patient does have a history of pneumonia in the past. Patient states that she has been or fatigue over the past 2 days. States that when she tried to get up this morning she felt generally weak. Patient denies any falls or trauma. States that she was feeling nauseous earlier today with no vomiting. Patient is also been having a nonproductive cough for the past couple days. No notable fevers. No chest pain. Patient notes numbness and tingling of her extremities which are not new for her and are consistent with a fibromyalgia flareup confirmed by family. Pain Scale: 5 - Related Data Home Medications Medication Instructions Recorded Confirmed Aspirin 325 mg PO DAILY 05/01/16 05/01/16 Cholecalciferol (D-3) [Vitamin D] 1,000 unit PO DAILY 05/01/16 05/01/16 Omeprazole [PriLOSEC] 20 mg PO BID 05/01/16 05/01/16 amLODIPine [Norvasc] 5 mg PO DAILY 05/01/16 05/01/16 DULoxetine [Cymbalta] 30 mg PO DAILY 10/22/17 10/22/17 Multivitamin [One Daily Essential] 1 tab PO DAILY 10/22/17 10/22/17 Allergies Allergy/AdvReac Type Severity Reaction Status Date / Time No Known Allergies Allergy Verified 05/01/16 09:16 All systems ED: reviewed and negative except as stated. Constitutional: Denies: fever Cardiovascular: Denies: chest pain Respiratory: Reports: cough. Denies: dyspnea Gastrointestinal: Reports: abdominal pain, nausea. Denies: vomiting, diarrhea, constipation Past Medical History - Past Medical History Source: patient, obtained from family Medical history: Reports: fibromyalgia, GERD, hypertension Surgical history: Reports: breast surgery (breast reduction), cholecystectomy, other (bladder sling) Psychiatric history: Reports: no psych history - Social History Smoking Status: Never smoker Smokeless Tobacco Status: No Alcohol use: Reports: none Drug use: Reports: none Physical Exam - General Limitations: no limitations General appearance: alert, in no apparent distress - Head Head exam: atraumatic, normocephalic, normal inspection - Eye Eye exam: Present: normal appearance, PERRL, EOMI - ENT ENT exam: normal exam, mucous membranes moist - Neck Neck exam: Present: normal inspection - Chest Chest inspection: Present: normal inspection, symmetric chest wall rise - Respiratory Respiratory exam: Present: other (Diminished right-sided lung sounds). Absent: respiratory distress - Cardiovascular Cardiovascular exam: Present: regular rate, normal rhythm. Absent: systolic murmur - Abdominal Exam Abdominal exam: Present: soft, Non-Tender - Extremities Exam Extremities exam: Present: normal inspection. Absent: pedal edema - Expanded Lower Extremity Exam Neurovascular/Tendon exam: Present: normal capillary refill. Absent: pulse deficit, motor deficit - Back Exam Back exam: Present: normal inspection - Neurological Exam Neurological exam: Present: alert, oriented X3, CN II-XII intact - Expanded Neurological Exam Patient oriented to: Present: person Speech: Present: fluid speech Cranial nerves: EOM function (II, III, IV, ): Normal, facial sensation (V): Normal, facial palsy (VII): Normal, spinal accessory function (XI): Normal, tongue deviation (XII): Normal Motor strength - LUE: 5/5 Motor strength - RUE: 5/5 Motor strength - LLE: 5/5 Motor strength - RLE: 5/5 Coma Scale Eye Opening: Spontaneous Coma Scale Motor Response: Obeys Commands Coma Scale Verbal Response: Oriented Coma Scale Total: 15 - Skin Skin exam: Present: warm, dry, intact, normal color Course Course Narrative: Patient seen and examined. Patient's resting comfortably. No acute distress. Patient will get basic labs, chest x-ray urinalysis. Disposition pending. Patient is a nonfocal exam complaining of generalized weakness. - Reevaluation(s) Reevaluation #1: Patient's resting comfortably. Updated on plan of care. Patient does have a mild elevation lactate and is getting gradual titration of fluid boluses. All questions were answered at bedside. Time: 11:41 Vital Signs Temperature 98.1 F 10/22/17 10:25 Pulse Rate 80 10/22/17 10:25 Respiratory Rate 18 10/22/17 10:25 Blood Pressure 122/66 10/22/17 10:25 O2 Sat by Pulse Oximetry 98 10/22/17 10:25 Temperature 98.1 F 10/22/17 10:25 Pulse Rate 78 10/22/17 10:36 Respiratory Rate 18 10/22/17 10:36 Blood Pressure 156/78 10/22/17 10:36 O2 Sat by Pulse Oximetry 97 10/22/17 10:36 Oxygen Delivery Oxygen Delivery Room Air Medical Decision Making - MDM Narrative Medical decision making narrative: 87 neural female percent for evaluation of generalized weakness. Does have a history of pneumonia proximally a month ago. Patient does live at a nursing facility and chest x-ray findings are consistent with pneumonia. Patient was treated with antibiotics to cover healthcare associated pneumonia. Patient did have a mild elevation of lactate and was given appropriate fluid balance. Patient does not require any oxygen supplementation or any signs respiratory distress. Patient will be admitted to the hospital service for further evaluation/monitoring to ensure symptom resolution. - Lab Data Lab results reviewed: Yes I reviewed the patient's lab results. Result diagrams: 10/22/17 10:33 10/22/17 10:33 Lab Results 10/22/17 10/22/17 10/22/17 Range/Units 10:33 10:33 10:33 WBC 5.3 (4.3-11.1) K/mcL RBC 5.27 H (3.82-4.97) M/mcL Hgb 15.5 H (11.5-15.4) g/dL Hct 45.5 H (35.3-44.9) % MCV 86.3 (83.0-100.0) fL MCH 29.4 (28.0-33.3) pg MCHC 34.1 (31.6-35.5) g/dL RDW 12.9 (11.5-14.5) % Plt Count 330 (140-400) K/mcL MPV 10.8 (9.4-12.4) fL Immature Gran % 0.2 (0-4) % Seg Neutrophils % 51.7 % Lymphocytes % 36.1 % Monocytes % 8.1 % Eosinophils % 3.2 % Basophils % 0.7 % Neutrophils # 2.8 (1.6-8.9) K/mcL Lymphocytes # 1.9 (0.6-4.6) K/mcL Monocytes # 0.4 (0.0-1.3) K/mcL Eosinophils # 0.2 (0.0-0.6) K/mcL Basophils # 0.0 (0.0-0.2) K/mcL Sodium 138 (136-145) mEq/L Potassium 4.0 (3.5-5.1) mEq/L Chloride 103 (98-107) mEq/L Carbon Dioxide 24 (23-29) mEq/L BUN 12 (8-23) mg/dL Creatinine 0.78 (0.60-1.20) mg/dL Est GFR ( Amer) > 60 (> 60) Est GFR (Non-Af Amer) > 60 (> 60) BUN/Creatinine Ratio 15 (6-26) Glucose 107 H (70-105) mg/dL Calculated Osmolality 286 (280-300) Lactic Acid 2.9 H (0.5-2.2) mmol/L Calcium 9.7 (8.6-10.3) mg/dL Total Bilirubin 0.5 (0.3-1.0) mg/dL AST 23 (13-39) Units/L ALT 25 (7-52) Units/L Alkaline Phosphatase 78 (34-104) Units/L Troponin I < 0.03 (< 0.04) ng/mL Serum Total Protein 7.3 (6.4-8.9) g/dL Albumin 4.4 (3.5-5.7) g/dL Globulin 2.9 (2.4-3.5) g/dL Albumin/Globulin Ratio 1.5 (1.1-2.2) - Radiology Data Radiology results reviewed: Yes I reviewed the patient's radiology results. Chest X-Ray 10/22/17 10:46 IMPRESSION: Interstitial infiltrate at the left lung base suspicious for pneumonia. D/ / Denis Williamson MD / Denis Williamson MD Interpreting Provider: Denis Williamson MD - EKG Data EKG #1 EKG attestation: Yes I reviewed and interpreted this EKG. EKG shows normal: sinus rhythm Rate: normal Rhythm: NSR [place]/QRS: normal T wave inversions noted in: v1 Interpretation: no acute changes, nonspecific ST-T wave changes S.B.A.R. - S.Najma Situation: Demographics Background: Presenting Complaint Assessment: Vital Signs, Course and respsone to treatment, Patient/Family Expectation Recommendation: Barrier(s) to disposition, Recommendation based on pending studies, treatments, or consults S.B.ASwapna Report Given to: Dr. Reji Boyle Repor Time: 11:32 Attestation Statement - Attestation Attestation: This documentation is done with the assistance of Dragon dictation. Despite efforts made to ensure accuracy, there may be inaccuracies in graphic coordinator or spelling and typographical errors. I examined this patient and my medical decision-making was reviewed with the Resident Physician. I agree with the documented findings, disposition and treatment plan as described except to the extent set forth below. Patient seen and evaluated on arrival with family and Dr. Su, I agree with his evaluation and management plan, supervised care the patient's stay. Daughter states patient's been complaining of weakness for last couple days this is been generalized. It is consistent with her fibromyalgia. Daughter states she is a continuation her meds takes acetaminophen rest and gets better. The patient was still having concerns this morning. Daughter had EMS come out to evaluate her, they thought she had some crackles in the lower portion of her right lung. Daughter states she has had pneumonia in the past no fevers here. Nothing new on neuro exam. She denies any chest pain. Were getting a workup on her and reassess to make sure she had no pneumonia or something else could be causing her weakness. Family is in agreement with this plan.
[2017-10-22 11:05] LABS: Troponin I < 0.03 ng/mL (< 0.04)
[2017-10-22 11:10] LABS: Alanine Aminotransferase 25 Units/L (7-52); Albumin 4.4 g/dL (3.5-5.7); Albumin/Globulin Ratio 1.5 (1.1-2.2); Alkaline Phosphatase 78 Units/L (34-104); Aspartate Amino Transferase 23 Units/L (13-39); BUN/Creatinine Ratio 15 (6-26); Bilirubin,Total 0.5 mg/dL (0.3-1.0); Blood Urea Nitrogen 12 mg/dL (8-23); Calcium 9.7 mg/dL (8.6-10.3); Carbon Dioxide 24 mEq/L (23-29); Chloride 103 mEq/L (98-107); Globulin 2.9 g/dL (2.4-3.5); Glucose 107 mg/dL (70-105); Osmolality,Calculated 286 (280-300); Sodium 138 mEq/L (136-145); Total Protein 7.3 g/dL (6.4-8.9); eGFR For Non-African Americans > 60 (> 60)
[2017-10-22 11:11] LABS: Basophils % 0.7 %; Eosinophils # 0.2 K/mcL (0.0-0.6); Eosinophils % 3.2 %; Hematocrit 45.5 % (35.3-44.9); Hemoglobin 15.5 g/dL (11.5-15.4); Immature Granulocytes % 0.2 % (0-4); Lymphocytes # 1.9 K/mcL (0.6-4.6); Lymphocytes % 36.1 %; Mean Corpuscular HGB Conc 34.1 g/dL (31.6-35.5); Mean Corpuscular Hemoglobin 29.4 pg (28.0-33.3); Mean Corpuscular Volume 86.3 fL (83.0-100.0); Mean Platelet Volume 10.8 fL (9.4-12.4); Monocytes # 0.4 K/mcL (0.0-1.3); Monocytes % 8.1 %; Neutrophils # 2.8 K/mcL (1.6-8.9); Platelet Count 330 K/mcL (140-400); Red Blood Count 5.27 M/mcL (3.82-4.97); Red Cell Distribution Width 12.9 % (11.5-14.5); Segmented Neutrophils % 51.7 %
[2017-10-22] MEDS ORDERED: Piperacillin/Tazobactam 3.375 GM in 0.9 % Sodium Chloride Mini Bag 100 ML IVPB ONE (11:23)
[2017-10-22] MEDS ORDERED: 0.9 % Sodium Chloride 1,000 ML IVC ONE ×2 (11:27→11:34)
[2017-10-22] MEDS ORDERED: *HR* OxyCODONE Immed Rel 5 MG TABLET PO PRN (12:11)
[2017-10-22] MEDS ORDERED: Naloxone 0.4 MG/ML INJ IVP PRN (12:11)
[2017-10-22] MEDS ORDERED: Acetaminophen 325 MG TABLET PO PRN (12:11)
[2017-10-22] MEDS ORDERED: traMADol 50 MG TABLET PO PRN (12:11)
[2017-10-22] MEDS ORDERED: MOM Conc 10 ML UD.LIQ PO ONE (12:18)
[2017-10-22] MEDS ORDERED: Ondansetron 4 MG/2 ML VIAL IVP PRN (12:21)
--- NOTE | 2017-10-22 13:31 | Internal Med History&Physical ---
Date of Encounter: 10/22/17 Time of Encounter: 13:29 Internal Medicine - H&P: HPI History of present illness: Ms. Correa is a 87 year old female with a history of hypertension presents to ED for generalized weakness with numbness and tingling. [facility] came [facility]. She states this is on and off for several years but two days ago became severe and was limited in mobility. She denies fevers/ chills, trauma, n/v, diarrhea/constipation, unilateral deficits. States appetite is good. Denies depressed mood. No known history of diabetes or thyroid issues. She attributes these symptoms to fibromyalgia. When EMS evaluated patient they heard crackles in lower lung. In ED a chest x-ray showed infiltrate in left lung suspicious for pneumonia. CBC and BMP were unremarkable but a lactic acid was elevated at 2.9. She had blood cultures obtained and she was started on Vanc/Zosyn, and given IV fluids. Currently she is in no acute distress. His daughter is at bedside. Past Med Surg Social Fam HX - Past Medical History Medical history: fibromyalgia, GERD, hypertension Psychiatric history: no psych history - Past Surgical History Surgical History: breast surgery (breast reduction), cholecystectomy, other ( bladder sling) Additional surgical history: bladder mesh - Social History Smoking Status: Never smoker Smokeless Tobacco Status: No Alcohol use: none Drug use: none - Family History Mother Living Status: Father Living Status: Hx Family Cardiac Disorders: No Hx Family Respiratory Disorders: No Hx Family Neuromuscular Disorders: Yes Brother Living Status: Internal Medicine - H&P: Meds Aspirin 325 mg PO DAILY 05/01/16 [History] Cholecalciferol (D-3) [Vitamin D] 1,000 unit PO DAILY 05/01/16 [History] Omeprazole [PriLOSEC] 20 mg PO BID 05/01/16 [History] amLODIPine [Norvasc] 5 mg PO DAILY 05/01/16 [History] DULoxetine [Cymbalta] 30 mg PO DAILY 10/22/17 [History] Multivitamin [One Daily Essential] 1 tab PO DAILY 10/22/17 [History] 3 Allergy/AdvReac Type Severity Reaction Status Date / Time No Known Allergies Allergy Verified 05/01/16 09:16 All Systems PM: A 10-system review of systems was performed and is negative for pertinent findings except as documented above in the HPI. - Constitutional Constitutional: fatigue, weakness, no chills, no fever(s), no night sweats - EENT Eyes: no change in vision, no discharge, no pain, no photophobia Nose, mouth and throat: no dysphagia, no nasal discharge, no neck pain, no sore throat - Cardiovascular Cardiovascular ROS IM: no chest pain, no diaphoresis, no dyspnea, no lightheadedness, no palpitations, no syncope - Respiratory Respiratory: no cough, no dyspnea, no wheezing, no excessive phlegm production - Gastrointestinal Gastrointestinal: no abdominal pain, no diarrhea, no hematemesis, no hematochezia, no melena, no nausea, no vomiting - Genitourinary Genitourinary: no change in urinary stream, no dysuria, no flank pain, no hematuria - Musculoskeletal Musculoskeletal ROS IM: numbness, tingling Additional comments: equal extremity numbness/tingling - Neurological Neurological ROS: numbness, tingling, no confusion, no convulsions, no focal weakness, no tremor(s) - Constitutional Vitals: Temp Pulse Resp BP Pulse Ox 97.4 F L 68 17 141/67 92 10/22/17 12:52 10/22/17 12:52 10/22/17 12:52 10/22/17 12:52 10/22/17 12:52 General appearance: Present: A&O X 3, pleasant, no acute distress Exam: NAD - Head Head exam: Present: atraumatic, normocephalic - Eye Eye exam: Present: PERRL, conjuntiva pink, sclera anicteric Pupils: Present: PERRL - Neck Neck exam general surgery: Present: supple, trachea midline. Absent: lymphadenopathy - Respiratory Respiratory exam: Present: CTAB. Absent: accessory muscle use, rales, rhonchi, wheezes - Cardiovascular Cardiovascular exam: Present: RRR, +S1, +S2. Absent: diastolic murmur, gallop, rubs, systolic murmur - GI/Abdominal GI/Abdominal exam: Present: normal bowel sounds, soft, no peritoneal signs. Absent: distended, tenderness - Extremities Exam Extremities exam: Present: warm, radial pulses palpable and symmetrical. Absent : calf tenderness, cyanotic, pedal edema - Neurological Exam Neurological exam: Present: CN II-XII intact, oriented X3, no focal deficits. Absent: pronater drift, facial droop, speech deficit - Skin Skin exam: Present: dry, intact Internal Med - H&P Results - Labs CBC & Chem 7: 10/22/17 10:33 10/22/17 10:33 - Assessment and plan (1) Weakness Current Visit: Yes Status: Acute Assessment and plan: Unsure current etiology. May be related to pneumonia and/or deconditioning. Must rule out if this is related to neurology process since she is also having numbness and tingling of extremities. Will consult PT/OT. Consult Neurology. Obtain TSH, B12, MONICA, ESR. (2) Elevated lactic acid level Current Visit: Yes Status: Acute Assessment and plan: On admission found to be 2.9. Currently given IV fluid. Does not appear to be infection/pneumonia related as she has 0 SIRS criteria on admission. Possibly due to dehydration. Will give IV fluid and recheck in 6 hours. (3) Peripheral neuropathy Current Visit: Yes Status: Acute Assessment and plan: Plan as above. Qualifiers: Peripheral neuropathy type: polyneuropathy, unspecified Qualified Code(s): G62.9 - Polyneuropathy, unspecified (4) Pneumonia Current Visit: Yes Status: Acute Assessment and plan: Continue vanc/Zosyn as she does come from assisted living facility and her daughter reports a recent hospitalization. However, our most recent visit on EMR shows 6 months ago a 05/01/2017 admission for pneumonia. Will still cover for HAP in the mean time. Follow-up resp panel, sputum culture, legionella/myco /strep antigens, procalcitonin. Qualifiers: Pneumonia type: due to unspecified organism Laterality: left Lung location: unspecified part of lung Qualified Code(s): J18.9 - Pneumonia, unspecified organism (5) Essential hypertension Current Visit: No Status: Chronic (6) DVT prophylaxis Current Visit: No Status: Acute Assessment and plan: Heparin SQ - Time Spent With Patient Total time spent is greater than 50% in coordination of care (as documented) at patient's floor/unit and/or counseling patient:
--- NOTE | 2017-10-22 17:02 | Neurology - Consult Note ---
<Bradley Jerez - Last Filed: 10/22/17 16:55> Date of Encounter: 10/22/17 Time of Encounter: 04:40 Assessment and Plan (1) Weakness Current Visit: Yes Status: Acute She has symmetrical weakness bilaterally that was worst in pulper operator. With her numbness, paresthesias, and weakness occurring bilaterally it is unlikely result of an acute neurological process. She has had similar symptoms off and on for 5-6 years. She is being treated for pneumonia with increased lactic acid currently and her fatigue and weakness could be a result of this. I do not think any [employer] imaging would be appropriate given her clinical presentation. Will follow and reassess. Code(s): R53.1 - Weakness History of Present Illness Chief complaint: generalized weakness HPI: Ms. Correa is a 87 year old female with pmh significant for HTN and fibromyalgia and neurology was consulted for generalized numbness and weakness. She said 2 days ago after waking up she was experiencing numbness and paresthesias on her face initially and then bilateral UE and LE. Weakness of bilateral UE and LE occurred shortly after the numbness started. She said she laid in bed whoch usually helps and the next day her symptoms were the same but worse. Today, she said she felt lower abdominal pain and worsening numbness/ paresthesias and weakness which prompted her to call EMS. She said she has similar symptoms every time her fibromyalgia "acts up." She says she just feels wore out with decreased energy. This has been recurring symptoms for the last 5- 6 years but has been worse the last 2 weeks. She denies any diplopia, blurry vision, JEROME, dizziness, chest pain, palpitations, presyncope or syncope, dysphagia, N/V, trouble ambulating or falls. She does say she feels lightheaded thats worst when going from sitting to standing. Past Med Surg Social Fam HX - Past Medical History Medical history: fibromyalgia, GERD, hypertension Psychiatric history: no psych history - Past Surgical History Surgical History: breast surgery, cholecystectomy, other Additional surgical history: bladder mesh - Social History Smoking Status: Never smoker Smokeless Tobacco Status: No Alcohol use: none Drug use: none - Family History Mother Living Status: Father Living Status: Hx Family Cardiac Disorders: No Hx Family Respiratory Disorders: No Hx Family Neuromuscular Disorders: Yes Brother Living Status: Medications and Allergies Aspirin 325 mg PO DAILY 05/01/16 [History] Cholecalciferol (D-3) [Vitamin D] 1,000 unit PO DAILY 05/01/16 [History] Omeprazole [PriLOSEC] 20 mg PO BID 05/01/16 [History] amLODIPine [Norvasc] 5 mg PO DAILY 05/01/16 [History] DULoxetine [Cymbalta] 30 mg PO DAILY 10/22/17 [History] Multivitamin [One Daily Essential] 1 tab PO DAILY 10/22/17 [History] 3 Allergy/AdvReac Type Severity Reaction Status Date / Time No Known Allergies Allergy Verified 05/01/16 09:16 All Systems: The remainder of the systems were reviewed and are negative Physical Examination - Vital Signs Vital Signs: Initial Vital Signs Temp Pulse Resp BP Pulse Ox 98.1 F 80 18 122/66 98 10/22/17 10:25 10/22/17 10:25 10/22/17 10:25 10/22/17 10:25 10/22/17 10:25 - Constitutional General appearance: comfortable - Neurologic Sensorimotor examination: intact Motor examination - right side: 4/5: triceps, wrist flexion, wrist extension, pulper operator, 5/5: deltoids, biceps, hip flexors, tibialis Anterior, quadriceps, toe extension (EHL), plantarflexion Motor examination - left side: 4/5: triceps, wrist flexion, wrist extension, hip flexors, 5/5: deltoids, biceps, pulper operator, quadriceps, tibialis Anterior, toe extension (EHL), plantarflexion Detailed sensory examination: intact, light touch (intact), temperature (intact) Mental Status Examination: awake, alert, oriented to person, oriented to place, oriented to time, follows commands appropriately, answers questions appropriately, no aphasia Cranial nerve examination: PERRL, EOMI, visual katz intact, sensory to face intact, mastication intact, no facial asymmetry is present, no dysarthria, hearing is intact symmetrically, soft palate elevates bilaterally upon phonation , flexes SCM and trapezius muscles symmetrically with full power, tongue protrudes midline, no atrophy or facial fasiculations present Cerebellar examination: no dysmetria, performs finger to nose and heel to francois symmetrically without ataxia (R heal/francois not performed due to chronic R knee pain and decreased ROM ), no gait ataxia, no truncal ataxia Results - Laboratory Findings CBC and BMP: 10/22/17 10:33 10/22/17 10:33 Abnormal lab findings: Abnormal lab results RBC 5.27 M/mcL (3.82-4.97) H 10/22/17 10:33 Hgb 15.5 g/dL (11.5-15.4) H 10/22/17 10:33 Hct 45.5 % (35.3-44.9) H 10/22/17 10:33 Glucose 107 mg/dL (70-105) H 10/22/17 10:33 Lactic Acid 2.9 mmol/L (0.5-2.2) H 10/22/17 10:33 Consult Discharge Plan - Plan Referrals: Souleymane Reyna MD [Primary Care Provider] - <Luther Delarosa - Last Filed: 10/22/17 18:27> Date of Encounter: 10/22/17 Time of Encounter: 18:23 Assessment and Plan (1) Weakness Current Visit: Yes Status: Acute I suspect that what Moira actually experienced is some type of anxiety or panic attack. I find no evidence of a spinal cord lesion, or peripheral nerve process. We are not dealing with transverse myelitis or Guillain-Perryman syndrome. No evidence of myopathy. This does not fit with periodic paralysis. I will reevaluate her at your request. No evidence of stroke. History of Present Illness HPI: Ms. Correa is a 87 year old female who is seen for neurologic consultation at the request of the hospitalist secondary to symptoms of paresthesias and generalized weakness of the arms and legs. The patient was seen and examined independently. The case was discussed with Dr. Jerez. I agree with his assessment as stated above. She describes "attacks" of fibromyalgia. During the attacks she experiences paresthesias of the hands and arms legs and feet. However she is able to stand and walk as she was in the bathroom today when I came to visit her. She denies any back pain at this time denies urinary incontinence. All Systems: The remainder of the systems were reviewed and are negative Review of Systems: The balance of the systems review is negative. Physical Examination - Vital Signs Vital Signs: Initial Vital Signs Temp Pulse Resp BP Pulse Ox 98.1 F 80 18 122/66 98 10/22/17 10:25 10/22/17 10:25 10/22/17 10:25 10/22/17 10:25 10/22/17 10:25 - Neurologic Detailed motor examination: other (Patient has no focal or lateralized deficits however she does have generalized give way weakness. She has normal bulk and tone throughout.) Detailed sensory examination: other (No spinal level is identified.) Reflex and gait examination: other (Deep tendon reflexes are 2 symmetrically of the biceps, triceps, brachioradialis, patellar and Achilles.) Results - Laboratory Findings CBC and BMP: 10/22/17 10:33 10/22/17 10:33 Abnormal lab findings: Abnormal lab results RBC 5.27 M/mcL (3.82-4.97) H 10/22/17 10:33 Hgb 15.5 g/dL (11.5-15.4) H 10/22/17 10:33 Hct 45.5 % (35.3-44.9) H 10/22/17 10:33 Glucose 107 mg/dL (70-105) H 10/22/17 10:33 Hemoglobin A1c 5.9 % (-5.6) H 10/22/17 17:08
[2017-10-22] MEDS: *HR* Heparin 5,000 UNIT/ML VIAL SQ SCH (17:29)
[2017-10-22 17:49] LABS: Estimated Average Glucose 123 mg/dl; Hemoglobin A1C 5.9 %
[2017-10-22 17:59] LABS: Rheumatoid Factor < 10 IU/mL (Less than 14)
[2017-10-22 18:18] LABS: Vitamin B12 472 pg/mL (250-1100)
[2017-10-22] MEDS: Piperacillin/Tazobactam 3.375 GM in 0.9 % Sodium Chloride Mini Bag 100 ML IVPB SCH (19:51)
[2017-10-22 22:50] LABS: Adenovirus Not Detected (Not Detect); Bordetella Pertussis Not Detected (Not Detect); Chlamydophila pneumoniae Not Detected (Not Detect); Coronavirus 229E Not Detected (Not Detect); Coronavirus HKU1 Not Detected (Not Detect); Coronavirus NL63 Not Detected (Not Detect); Coronavirus OC43 Not Detected (Not Detect); Human Metapneumovirus Not Detected (Not Detect); Human Rhinovirus/Enterovirus Not Detected (Not Detect); Influenza A Subtype 2009 H1 Not Detected (Not Detect); Influenza A Untypeable Not Detected (Not Detect); Influenza B Not Detected (Not Detect); Mycoplasma pneumoniae Not Detected (Not Detect); Parainfluenza Virus 1 Not Detected (Not Detect); Parainfluenza Virus 2 Not Detected (Not Detect); Parainfluenza Virus 3 Not Detected (Not Detect); Parainfluenza Virus 4 Not Detected (Not Detect); Respiratory Syncytial Virus Not Detected (Not Detect)
[2017-10-23] MEDS: Piperacillin/Tazobactam 3.375 GM in 0.9 % Sodium Chloride Mini Bag 100 ML IVPB SCH ×3 (04:02→20:14)
[2017-10-23 04:49] LABS: Basophils # 0.1 K/mcL (0.0-0.2); Eosinophils # 0.3 K/mcL (0.0-0.6); Eosinophils % 4.9 %; Hematocrit 39.2 % (35.3-44.9); Immature Granulocytes % 0.3 % (0-4); Lymphocytes # 2.2 K/mcL (0.6-4.6); Lymphocytes % 35.4 %; Mean Corpuscular HGB Conc 32.7 g/dL (31.6-35.5); Mean Corpuscular Hemoglobin 29.5 pg (28.0-33.3); Mean Corpuscular Volume 90.3 fL (83.0-100.0); Mean Platelet Volume 10.3 fL (9.4-12.4); Monocytes # 0.6 K/mcL (0.0-1.3); Monocytes % 9.7 %; Neutrophils # 3.1 K/mcL (1.6-8.9); Platelet Count 255 K/mcL (140-400); Red Blood Count 4.34 M/mcL (3.82-4.97); Red Cell Distribution Width 12.8 % (11.5-14.5); Segmented Neutrophils % 48.7 %
[2017-10-23 04:55] LABS: Hemoglobin 12.8 g/dL (11.5-15.4)
[2017-10-23 05:08] LABS: BUN/Creatinine Ratio 16 (6-26); Blood Urea Nitrogen 13 mg/dL (8-23); Calcium 8.6 mg/dL (8.6-10.3); Carbon Dioxide 23 mEq/L (23-29); Chloride 109 mEq/L (98-107); Glucose 111 mg/dL (70-105); Osmolality,Calculated 289 (280-300); Potassium 3.9 mEq/L (3.5-5.1); Sodium 139 mEq/L (136-145); eGFR For Non-African Americans > 60 (> 60)
[2017-10-23] MEDS: *HR* Heparin 5,000 UNIT/ML VIAL SQ SCH ×2 (05:26→17:25)
--- NOTE | 2017-10-23 08:54 | Electrocardiograph Report ---
[employer] 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
[2017-10-23] MEDS: amLODIPine 5 MG TABLET PO SCH (09:53)
[2017-10-23] MEDS: Cholecalciferol (D-3) 1,000 UNIT TABLET PO SCH (09:53)
[2017-10-23] MEDS: Aspirin 325 MG TABLET PO SCH (09:53)
[2017-10-23] MEDS ORDERED: Aminoglycoside Consult 1 EACH MC ONE (11:51)
--- NOTE | 2017-10-23 14:25 | Internal Med Progress Note ---
<ReginaldoNolan Jo - Last Filed: 10/23/17 14:18> Hospitalist Progress Note - Encounter Date of Encounter: 10/23/17 Time of Encounter: 09:00 - Subjective Interval History: 87 female with PMHx of fibromyalgia + HTN presented to ED with complaints of generalized weakness, numbness/tingling, and SOB over the past couple weeks. Patient admitted for PNA. She is doing well this morning. She still has some SOB when she gets up to go to restroom. She admits to chills and a cough productive of yellow sputum. Patient states she still has generalized fatigue, numbness, and pain diffusely throughout her body. She denies JEROME, n/v/d, changes in diet, changes in bowel/bladder habits. - Exam Vitals: Temp Pulse Resp BP Pulse Ox 97.2 F L 73 16 146/64 94 10/23/17 12:00 10/23/17 12:00 10/23/17 12:00 10/23/17 12:00 10/23/17 12:00 Exam: Gen: no acute distress, A&O x3 Heart: RRR, no murmurs appreciated Chest: tender to palpation bilaterally Lungs: diminished lung sounds on right, no wheezes heard Abdomen: soft, non-tender, non-distended Extremities: no edema, tender to palpation in UE and LE bilaterally MSK: generalized weakness in all extremities - 4/5 Back: tender to palpation in midline over upper and lower regions Vascular: pulses +2 in all extremities Neuro: CN II-XII intact, no focal deficits - Assessment and Plan (1) Pneumonia Current Visit: Yes Status: Acute Assessment and Plan: WBC 6.3 today Discontinued vancomycin Continue IV zosyn Respiratory panel negative Sputum culture ordered Blood cultures pending Possible discharge tomorrow with home PO augmentin (2) Weakness Current Visit: Yes Status: Acute Assessment and Plan: Likely 2/2 fibromyalgia flare No focal deficits TSH normal Neurology doesn't think any imaging is necessary Recommend outpatient rheumatology referral (3) Essential hypertension Current Visit: No Status: Chronic Assessment and Plan: BP 146/64 Continue home amlodipine (4) Elevated lactic acid level Current Visit: Yes Status: Resolved (5) Peripheral neuropathy Current Visit: Yes Status: Acute Assessment and Plan: Likely 2/2 fibromyalgia flare Patient on home cymbalta Ordered lidocaine patch for back Vitamin B normal HbA1c 5.9 Recommend rheumatology outpatient referral DVT Prophylaxis: Subcutaneous heparin - Time Spent with Patient Total time spent is greater than 50% in coordination of care (as documented) at patient's floor/unit and/or counseling patient: 25 - 35 minutes Plan of Care Discussed with: patient Internal Medicine: Result - Labs CBC & Chem 7: 10/23/17 04:31 10/23/17 04:31 Labs: Short CBC 10/23/17 Range/Units 04:31 WBC 6.3 (4.3-11.1) K/mcL Hgb 12.8 D (11.5-15.4) g/dL Hct 39.2 (35.3-44.9) % Plt Count 255 (140-400) K/mcL Neutrophils # 3.1 (1.6-8.9) K/mcL BMP 10/23/17 04:31 Sodium 139 Potassium 3.9 Chloride 109 H Carbon Dioxide 23 BUN 13 Creatinine 0.81 Glucose 111 H Calcium 8.6 Consult Discharge Plan - Plan Referrals: Souleymane Reyna MD [Primary Care Provider] - <Alexey Valentin - Last Filed: 10/23/17 17:00> Hospitalist Progress Note - Encounter Date of Encounter: 10/23/17 - Exam Vitals: Temp Pulse Resp BP Pulse Ox 97.6 F 67 16 135/69 93 10/23/17 15:51 10/23/17 15:51 10/23/17 15:51 10/23/17 15:51 10/23/17 15:51 - Assessment and Plan (1) Pneumonia Current Visit: Yes Status: Acute (2) Weakness Current Visit: Yes Status: Acute (3) Essential hypertension Current Visit: No Status: Chronic (4) Elevated lactic acid level Current Visit: Yes Status: Resolved (5) Peripheral neuropathy Current Visit: Yes Status: Acute - Time Spent with Patient Total time spent is greater than 50% in coordination of care (as documented) at patient's floor/unit and/or counseling patient: Internal Medicine: Result - Labs CBC & Chem 7: 10/23/17 04:31 10/23/17 04:31 Labs: Short CBC 10/23/17 Range/Units 04:31 WBC 6.3 (4.3-11.1) K/mcL Hgb 12.8 D (11.5-15.4) g/dL Hct 39.2 (35.3-44.9) % Plt Count 255 (140-400) K/mcL Neutrophils # 3.1 (1.6-8.9) K/mcL BMP 10/23/17 04:31 Sodium 139 Potassium 3.9 Chloride 109 H Carbon Dioxide 23 BUN 13 Creatinine 0.81 Glucose 111 H Calcium 8.6 - Attending Attestation I examined this patient and my medical decision-making was reviewed with the Resident Physician. Dr. Hair I agree with the documented findings, disposition and treatment plan as described except to the extent set forth below. Mr. Correa is a 87 y/o F with known fibromyalgia pt admitted here with low back pain and b/l LE weakness. She happened to have pneumonia too. She is alert, awake and O x 3. Denied any CP / SOB. States feels better today. Chest: Diminished BS b/l, No ronchi heart: S1S2+ RRR a/p 1. Acute PNA mostly aspirational with her post nasal drip symptoms, concerning for GERD induced aspiration recommend PPI BID cont empirical abx Zosyn Duoneb and O2 2. Fibromyalgia recommend to f.u with News [employer] Person <Nolan Hair S - Last Filed: 10/23/17 14:18> (1) Pneumonia Qualifiers: Pneumonia type: due to unspecified organism Laterality: left Lung location: unspecified part of lung Qualified Code(s): J18.9 - Pneumonia, unspecified organism (5) Peripheral neuropathy Qualifiers: Peripheral neuropathy type: polyneuropathy, unspecified Qualified Code(s): G62.9 - Polyneuropathy, unspecified <Alexey Valentin - Last Filed: 10/23/17 17:00> (1) Pneumonia Qualifiers: Pneumonia type: due to unspecified organism Laterality: left Lung location: unspecified part of lung Qualified Code(s): J18.9 - Pneumonia, unspecified organism (5) Peripheral neuropathy Qualifiers: Peripheral neuropathy type: polyneuropathy, unspecified Qualified Code(s): G62.9 - Polyneuropathy, unspecified
[2017-10-24] MEDS: Piperacillin/Tazobactam 3.375 GM in 0.9 % Sodium Chloride Mini Bag 100 ML IVPB SCH ×2 (04:03→11:14)
[2017-10-24 05:01] LABS: Basophils # 0.1 K/mcL (0.0-0.2); Eosinophils # 0.5 K/mcL (0.0-0.6); Eosinophils % 7.3 %; Hematocrit 36.4 % (35.3-44.9); Hemoglobin 12.1 g/dL (11.5-15.4); Immature Granulocytes % 0.1 % (0-4); Lymphocytes # 2.2 K/mcL (0.6-4.6); Lymphocytes % 29.3 %; Mean Corpuscular HGB Conc 33.2 g/dL (31.6-35.5); Mean Corpuscular Hemoglobin 28.6 pg (28.0-33.3); Mean Corpuscular Volume 86.1 fL (83.0-100.0); Mean Platelet Volume 10.7 fL (9.4-12.4); Monocytes # 0.6 K/mcL (0.0-1.3); Monocytes % 8.2 %; Platelet Count 272 K/mcL (140-400); Red Blood Count 4.23 M/mcL (3.82-4.97); Segmented Neutrophils % 54.1 %
[2017-10-24 05:15] LABS: BUN/Creatinine Ratio 19 (6-26); Blood Urea Nitrogen 15 mg/dL (8-23); Calcium 8.8 mg/dL (8.6-10.3); Carbon Dioxide 22 mEq/L (23-29); Chloride 108 mEq/L (98-107); Glucose 108 mg/dL (70-105); Osmolality,Calculated 291 (280-300); Potassium 3.6 mEq/L (3.5-5.1); Sodium 140 mEq/L (136-145); eGFR For Non-African Americans > 60 (> 60)
[2017-10-24] MEDS: *HR* Heparin 5,000 UNIT/ML VIAL SQ SCH (06:22)
[2017-10-24] MEDS: Aspirin 325 MG TABLET PO SCH (09:54)
[2017-10-24] MEDS: Cholecalciferol (D-3) 1,000 UNIT TABLET PO SCH (09:55)
[2017-10-24] MEDS: amLODIPine 5 MG TABLET PO SCH (09:55)
--- NOTE | 2017-10-24 10:41 | Discharge Summary ---
<Nolan Hair - Last Filed: 10/24/17 15:59> - NOTES TO OUTPATIENT PROVIDER Notes to Outpatient Provider: Patient had fibromyalgia flare likely 2/2 pneumonia. We discharged her with a 5 day course of augmentin, 7 day supply of lidocaine patch, PT/OT home health, and a rheumatology referral. Orders not resulted at time of discharge: Pending orders 10/22/17 12:16 Culture,Sputum with Gram Stain [RM] Routine 10/22/17 12:17 Procalcitonin Routine 10/22/17 12:18 Legionella Antigen [RM] Routine Streptococcal pneumoniae urin antigen [S. Pneumoniae Antigen] [RM] Routine 10/22/17 15:30 Mycoplasma pneumoniae IgG IgM Routine 10/22/17 17:08 MONICA Titer by IFA Routine Vitamin B1 (Thiamine) Whole Bl Routine 10/25/17 04:00 Procalcitonin AM 0400 Date of Encounter: 10/24/17 Time of Encounter: 10:30 - Discharge Diagnosis (1) Pneumonia Priority: Primary Status: Acute Assessment and Plan: Discontinued IV zosyn Will discharge on 5 day course of PO augmentin Patient states her SOB has improved Follow up with PCP Qualifiers: Pneumonia type: due to unspecified organism Laterality: left Lung location: unspecified part of lung Qualified Code(s): J18.9 - Pneumonia, unspecified organism (2) Weakness Priority: Primary Status: Acute Assessment and Plan: Likely 2/2 fibromyalgia flare PT/OT home health Rheumatology referral outpatient (3) Essential hypertension Priority: Secondary Status: Chronic Assessment and Plan: Continue home amlodipine BP 134/77 today (4) Elevated lactic acid level Priority: Secondary Status: Resolved Assessment and Plan: Resolved (5) Peripheral neuropathy Priority: Primary Status: Acute Assessment and Plan: Likely 2/2 fibromyalgia flare Patient on cymbalta at home Ordered lidocaine patch for back Vitamin B normal HgA1c 5.9 HbA1c Will refer to outpatient rheumatology PT/OT home health Qualifiers: Peripheral neuropathy type: polyneuropathy, unspecified Qualified Code(s): G62.9 - Polyneuropathy, unspecified Hospital course: Ms. Correa is a 87 year old female with PMHx of fibromyalgia, HTN, and GERD who presented to [facility] from [facility] with SOB, generalized weakness, numbness, tingling and pain for the past couple weeks. She denied fevers/chills, trauma, n/v/d. Patient's vitals were stable in ED and she was saturating at 98% on room air. Physical exam was significant for crackles in lung bases and generalized weakness. CXR showed infiltrates in left lung suspicious for PNA, so patient was started on IV vancomyin and zosyn. Blood cultures were obtained. EKG showed sinus rhythm with borderline T abnormalities. WBC was normal. Lactic acid was initially elevated at 2.9 and patient was given IV fluids. Vitamin B, TSH, HbA1c were normal. Neurology was consulted. Patient did not have any focal deficits or findings suspicious for spinal/brain lesions, so neurology opted not to get imaging. Patient was started on lidocaine patch for pain. Patient progressed well over the hospital course. After 3 days of IV Abx, patient was discharged on 5 day course of PO Augmentin. She was also given a 7 day supply of lidocaine patches for pain. We referred her to outpatient rheumatology and home health PT/OT for fibromyalgia and associated weakness. We instructed patient to follow up with her primary care provider. Discharge discussed with: patient, family - Time Spent with Patient Total time spent providing and/or coordinating discharge services: - Discharge Medications Prescriptions: Amoxicillin/Clavulanate [Augmentin] 1 mg PO BIDWM 5 Days #10 tablet Lidocaine Patch [Lidoderm 5% patch] 1 each TP DAILY 7 Days #7 adh..patch Home Medications: Aspirin 325 mg PO DAILY 05/01/16 [History] Cholecalciferol (D-3) [Vitamin D] 1,000 unit PO DAILY 05/01/16 [History] Omeprazole [PriLOSEC] 20 mg PO BID 05/01/16 [History] amLODIPine [Norvasc] 5 mg PO DAILY 05/01/16 [History] DULoxetine [Cymbalta] 30 mg PO DAILY 10/22/17 [History] Multivitamin [One Daily Essential] 1 tab PO DAILY 10/22/17 [History] Amoxicillin/Clavulanate [Augmentin] 1 mg PO BIDWM 5 Days #10 tablet 10/24/17 [Rx ] Lidocaine Patch [Lidoderm 5% patch] 1 each TP DAILY 7 Days #7 adh..patch [Rx] Allergies/Adverse Reactions: 3 Allergy/AdvReac Type Severity Reaction Status Date / Time No Known Allergies Allergy Verified 05/01/16 09:16 Date of admission: 10/22/17 11:50 Primary care physician: Souleymane Reyna MD Consults: 10/22/17 12:14 Consult to Occupational Therapy [CONS] Routine Comment: Evaluate, develop and implement POC Reason for Consult: Evaluate, develop and implement POC Weakness Does patient have active BEDREST order?: No Is patient medically & hemodynamically stable?: Yes Consult to Physical Therapy [CONS] Routine Comment: Evaluate, develop and implement POC Reason for Consult: Evaluate, develop and implement POC Weakness Does patient have active BEDREST order?: No Is patient medically & hemodynamically stable?: Yes 10/22/17 13:28 Consult to Neurology [CONS] Routine Consulting Provider: [facility] Reason for Consult: Weakness, peripheral neuropathy. Call Completed: Yes Discharging clinician: Nolan Hair Anticipated date of discharge: 10/24/17 - Constitutional Vitals: Temp Pulse Resp BP Pulse Ox 97.5 F L 70 16 134/77 95 10/24/17 07:45 10/24/17 07:45 10/24/17 07:45 10/24/17 07:45 10/24/17 07:45 General appearance: Present: pleasant, no acute distress, answers questions appropriately Exam: A&O x3 - Head Head exam: Present: atraumatic, normocephalic - Respiratory Respiratory exam: Present: chest wall tenderness, CTAB - Cardiovascular Cardiovascular exam: Present: RRR, +S1, +S2 - GI/Abdominal GI/Abdominal exam: Present: soft - Extremities Exam Extremities exam: Present: tenderness, warm, radial pulses palpable and symmetrical Additional comments: to palpation in UE and LE in multiple areas - Back Exam Back exam: Present: tenderness Additional comments: to palpation in upper and lower regions - Neurological Exam Neurological exam: Present: CN II-XII intact, no focal deficits (generalized weakness with 4/5 strength in all extremities) - Psychiatric Psychiatric exam: Present: normal affect, normal mood - Patient Status Disposition: Home Health Service Condition: Fair Functional capacity at discharge: independent ambulation Overall status at discharge: patient is progressing back to baseline - Discharge Instructions Instructions: Pneumonia (DC) Follow Up With: Souleymane Reyna MD [Primary Care Provider] - 10/31/17 10:30 am (Please follow up as schedule...) Jhon Greene, DO [Partnered Physician] - Additional Instructions: Please take Augmentin daily for next 5 days. Follow up with rheumatology (Dr. Greene) and your primary care provider. Physical therapy and occupational therapy will come to your home to provide assistance with ambulation and weakness. - Diet and Activity Activity: as per physical therapy Diet: advance to your usual diet <[email or web address] - Last Filed: 10/24/17 17:25> Orders not resulted at time of discharge: Pending orders 10/22/17 12:16 Culture,Sputum with Gram Stain [RM] Routine 10/22/17 12:17 Procalcitonin Routine 10/22/17 12:18 Legionella Antigen [RM] Routine Streptococcal pneumoniae urin antigen [S. Pneumoniae Antigen] [RM] Routine 10/22/17 15:30 Mycoplasma pneumoniae IgG IgM Routine 10/22/17 17:08 MONICA Titer by IFA Routine Vitamin B1 (Thiamine) Whole Bl Routine Date of Encounter: 10/24/17 - Discharge Diagnosis (1) Pneumonia Status: Acute Qualifiers: Pneumonia type: due to unspecified organism Laterality: left Lung location: unspecified part of lung Qualified Code(s): J18.9 - Pneumonia, unspecified organism (2) Weakness Status: Acute (3) Essential hypertension Status: Chronic (4) Elevated lactic acid level Status: Resolved (5) Peripheral neuropathy Status: Acute Qualifiers: Peripheral neuropathy type: polyneuropathy, unspecified Qualified Code(s): G62.9 - Polyneuropathy, unspecified Hospital course: Ms. Correa is a 87 year old female - Time Spent with Patient Total time spent providing and/or coordinating discharge services: Date of admission: 10/22/17 11:50 Primary care physician: Souleymane Reyna MD Consults: 10/22/17 12:14 Consult to Occupational Therapy [CONS] Routine Comment: Evaluate, develop and implement POC Reason for Consult: Evaluate, develop and implement POC Weakness Does patient have active BEDREST order?: No Is patient medically & hemodynamically stable?: Yes Consult to Physical Therapy [CONS] Routine Comment: Evaluate, develop and implement POC Reason for Consult: Evaluate, develop and implement POC Weakness Does patient have active BEDREST order?: No Is patient medically & hemodynamically stable?: Yes 10/22/17 13:28 Consult to Neurology [CONS] Routine Consulting Provider: [facility] Reason for Consult: Weakness, peripheral neuropathy. Call Completed: Yes - Constitutional Vitals: Temp Pulse Resp BP Pulse Ox 97.8 F 66 16 138/65 94 10/24/17 16:01 10/24/17 16:01 10/24/17 16:01 10/24/17 16:01 10/24/17 16:01 - Attending Attestation I examined this patient and my medical decision-making was reviewed with the Resident Physician. Dr. Hair I agree with the documented findings, disposition and treatment plan as described except to the extent set forth below. Mr. Correa is a 87 y/o F with known fibromyalgia pt admitted here with low back pain and b/l LE weakness. She happened to have pneumonia too. She is alert, awake and O x 3. Denied any CP / SOB. States feels better today. Chest: Diminished BS b/l, No ronchi heart: S1S2+ RRR a/p 1. Acute PNA mostly aspirational with her post nasal drip symptoms, concerning for GERD induced aspiration recommend PPI BID improving switched to PO Augmentin Duoneb and O2 2. 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
--- NOTE | 2017-10-24 12:27 | Physician Discharge Referral ---
Home Health/Hosp Referral Info Transfer to: Home Health Attending Provider: Dr. Alexey Valnetin Provider in Charge Post Discharge: PCP (Patient lives at [facility]. Discharging with PT/OT home health care.) - Diagnosis (1) Pneumonia Priority: Primary Status: Acute (2) Peripheral neuropathy Priority: Primary Status: Acute (3) Weakness Priority: Primary (PT/OT home health for weakness and fibromylagia) Status: Acute (4) Essential hypertension Priority: Secondary Status: Chronic (5) Elevated lactic acid level Priority: Secondary Status: Resolved - Respiratory Orders Smoking Cessation: Smoking cessation has been advised. For more information, call the [place] Tobacco Quit Line at 5-103-HZWC-NOW. - Diet/Nutrition Diet/Nutrition Orders: Regular - Activity Activity Orders: Up ad kalia - Services Needed Following services are medically necessary services: Physical Therapy, Occupational Therapy Home Care Orders: Please provide PT/OT home health for assistance with weakness and fibromyalgia. - Transfer Medications Prescriptions: Amoxicillin/Clavulanate [Augmentin] 1 mg PO BIDWM 5 Days #10 tablet Lidocaine Patch [Lidoderm 5% patch] 1 each TP DAILY 7 Days #7 adh..patch Home Medications: Aspirin 325 mg PO DAILY 05/01/16 [History] Cholecalciferol (D-3) [Vitamin D] 1,000 unit PO DAILY 05/01/16 [History] Omeprazole [PriLOSEC] 20 mg PO BID 05/01/16 [History] amLODIPine [Norvasc] 5 mg PO DAILY 05/01/16 [History] DULoxetine [Cymbalta] 30 mg PO DAILY 10/22/17 [History] Multivitamin [One Daily Essential] 1 tab PO DAILY 10/22/17 [History] Amoxicillin/Clavulanate [Augmentin] 1 mg PO BIDWM 5 Days #10 tablet 10/24/17 [Rx ] Lidocaine Patch [Lidoderm 5% patch] 1 each TP DAILY 7 Days #7 adh..patch [Rx] Allergies/Adverse Reactions: 3 Allergy/AdvReac Type Severity Reaction Status Date / Time No Known Allergies Allergy Verified 05/01/16 09:16 Certification: Further, I certify that my clinical findings support that this patient is homebound (i.e. absences from home require considerable and taxing effort and are for medical reasons or yazdanism services or infrequently or short duration when for other reasons) because: She has generalized weakness and numbness likely 2/2 fibromyalgia. Homebound Reason: Leaving home requires considerable and taxing effort due to condition Attestation: My signature below is to certify that this patient is under my care and that I, or nurse practitioner, or a physician's assistant corporate controller working with me, has a face-to -face encounter with this patient.
[2017-10-24 16:02] VITALS: BP 138/65
[2017-10-26 07:43] LABS: Mycoplasma pneumoniae IgG 0.3 U/L (<=0.09)
== END 2017-10-24 16:56 | disposition home health service (06) ==
LOC: EMEROOARM 10:18 → 2ANU 10:18
PROVIDERS: ADMIT Internal Medicine; ATTEND Internal Medicine

== ENCOUNTER 2019-06-24 13:37 | Observation (INO) ==
[2019-06-24 14:12] LABS: Hemoglobin 12.5 g/dL (11.5-15.4); Mean Corpuscular HGB Conc 33.8 g/dL (31.6-35.5); Mean Corpuscular Hemoglobin 29.3 pg (28.0-33.3); Mean Corpuscular Volume 86.9 fL (83.0-100.0); Mean Platelet Volume 10.6 fL (9.4-12.4); Platelet Count 291 K/mcL (140-400); Red Blood Count 4.26 M/mcL (3.82-4.97); White Blood Count 7.9 K/mcL (4.3-11.1)
[2019-06-24] MEDS ORDERED: Isovue-370 500 ML BOTTLE IVP ONE (14:15)
[2019-06-24 14:18] LABS: INR 1.1; Prothrombin Time 12.1 Seconds (9.4-12.1)
[2019-06-24 14:20] LABS: Activated Partial Thrombo Time 28.2 Seconds (26.0-36.0)
[2019-06-24 14:37] LABS: BUN/Creatinine Ratio 21 (6-26); Blood Urea Nitrogen 16 mg/dL (8-23); Calcium 9.1 mg/dL (8.6-10.3); Carbon Dioxide 20 mEq/L (23-29); Chloride 107 mEq/L (98-107); Glucose 104 mg/dL (70-105); Osmolality,Calculated 287 (280-300); Potassium 3.6 mEq/L (3.5-5.1); Sodium 138 mEq/L (136-145); Troponin I < 0.03 ng/mL (< 0.04); eGFR For African Americans > 60 (> 60); eGFR For Non-African Americans > 60 (> 60)
[2019-06-24] MEDS ORDERED: *HR* HYDROcodone/Acet 5/325 mg TABLET PO PRN (16:31)
[2019-06-24] MEDS ORDERED: Mag Hydrox/Al Hydrox/Simeth 30 ML UDC PO PRN (16:31)
[2019-06-24] MEDS ORDERED: Ondansetron 4 MG/2 ML VIAL IVP PRN (16:31)
[2019-06-24] MEDS ORDERED: Naloxone 0.4 MG/ML INJ IVP PRN (16:31)
[2019-06-24] MEDS ORDERED: Acetaminophen 325 MG TABLET PO PRN (16:31)
[2019-06-24] MEDS ORDERED: *HR* Promethazine 25 MG/ML VIAL IVP PRN (16:31)
[2019-06-24] MEDS ORDERED: MOM Conc 10 ML UD.LIQ PO PRN (16:31)
[2019-06-24 17:15] LABS: Bilirubin,Urine Negative (Negative); Blood,Urine Negative (Negative); Clarity,Urine Clear (Clear); Color,Urine Yellow (Yellow); Glucose,Urine (UA) Normal (Normal); Ketones,Urine Trace mg/dL (Negative); Leukocyte Esterase,Urine Moderate (Negative); Nitrite,Urine Negative (Negative); Protein,Urine Negative (Neg-Trace); Urobilinogen,Urine Normal (Normal)
[2019-06-24 17:50] LABS: RBC,Urine 0-3 per hpf (0-3); Squamous Epithelial Cell,Urine Few per lpf (None-Few); WBC,Urine 0-3 per hpf (0-3)
[2019-06-24] MEDS: Aspirin Enteric Coated 81 MG Tablet PO SCH (18:14)
[2019-06-24] MEDS: *HR* Heparin 5,000 UNIT/ML VIAL SQ SCH (18:15)
[2019-06-25 02:33] LABS: Hematocrit 37.5 % (35.3-44.9); Hemoglobin 12.8 g/dL (11.5-15.4); Mean Corpuscular HGB Conc 34.1 g/dL (31.6-35.5); Mean Corpuscular Volume 87.8 fL (83.0-100.0); Mean Platelet Volume 10.4 fL (9.4-12.4); Platelet Count 268 K/mcL (140-400); Red Blood Count 4.27 M/mcL (3.82-4.97); Red Cell Distribution Width 12.8 % (11.5-14.5); White Blood Count 7.4 K/mcL (4.3-11.1)
[2019-06-25 02:56] LABS: Alanine Aminotransferase 10 Units/L (7-52); Albumin 4.1 g/dL (3.5-5.7); Albumin/Globulin Ratio 1.6 (1.1-2.2); Alkaline Phosphatase 59 Units/L (34-104); Aspartate Amino Transferase 15 Units/L (13-39); BUN/Creatinine Ratio 19 (6-26); Bilirubin,Total 0.6 mg/dL (0.3-1.0); Blood Urea Nitrogen 12 mg/dL (8-23); Calcium 9.5 mg/dL (8.6-10.3); Carbon Dioxide 23 mEq/L (23-29); Chloride 107 mEq/L (98-107); Chol/HDL Ratio 3.7 (0-4.9); Cholesterol 138 mg/dL (< 200); Globulin 2.6 g/dL (2.4-3.5); Glucose 112 mg/dL (70-105); HDL Cholesterol 37 mg/dL (40-59); LDL Cholesterol,Calculated 53 mg/dL (0-99); Osmolality,Calculated 289 (280-300); Potassium 3.6 mEq/L (3.5-5.1); Sodium 139 mEq/L (136-145); Total Protein 6.7 g/dL (6.4-8.9); Triglycerides 242 mg/dL (< 150); eGFR For African Americans > 60 (> 60); eGFR For Non-African Americans > 60 (> 60)
[2019-06-25] MEDS: *HR* Heparin 5,000 UNIT/ML VIAL SQ SCH ×2 (05:04→17:38)
[2019-06-25] MEDS: Multivit/Ca/Min/Fe/FA 1 TAB TABLET PO SCH (07:34)
[2019-06-25] MEDS: Aspirin Enteric Coated 81 MG Tablet PO SCH (07:34)
[2019-06-25] MEDS: Cholecalciferol (D-3) 1,000 UNIT (25MCG) TABLET PO SCH (07:34)
[2019-06-25] MEDS: Cyanocobalamin (B-12) 1,000 MCG TABLET PO SCH (07:34)
[2019-06-25] MEDS: cefTRIAXone 1,000 MG in Water for inj. (sterile) 10 ML IVP SCH (08:41)
[2019-06-25] MEDS ORDERED: Aspirin 325 MG TABLET PO SCH (09:00)
[2019-06-26] MEDS: *HR* Heparin 5,000 UNIT/ML VIAL SQ SCH ×2 (05:10→17:29)
[2019-06-26 06:00] LABS: Hematocrit 39.5 % (35.3-44.9); Mean Corpuscular HGB Conc 32.9 g/dL (31.6-35.5); Mean Corpuscular Hemoglobin 29.3 pg (28.0-33.3); Mean Corpuscular Volume 89.2 fL (83.0-100.0); Mean Platelet Volume 12.2 fL (9.4-12.4); Platelet Count 225 K/mcL (140-400); Red Blood Count 4.43 M/mcL (3.82-4.97); Red Cell Distribution Width 12.9 % (11.5-14.5); White Blood Count 7.9 K/mcL (4.3-11.1)
[2019-06-26] MEDS: Cholecalciferol (D-3) 1,000 UNIT (25MCG) TABLET PO SCH (08:51)
[2019-06-26] MEDS: Cyanocobalamin (B-12) 1,000 MCG TABLET PO SCH (08:52)
[2019-06-26] MEDS: Multivit/Ca/Min/Fe/FA 1 TAB TABLET PO SCH (08:52)
[2019-06-26] MEDS: Aspirin 81 MG TAB.CHEW PO SCH (08:52)
[2019-06-26] MEDS: cefTRIAXone 1,000 MG in Water for inj. (sterile) 10 ML IVP SCH (08:55)
[2019-06-27] MEDS: *HR* Heparin 5,000 UNIT/ML VIAL SQ SCH (05:48)
[2019-06-27 06:42] VITALS: BP 147/72
[2019-06-27] MEDS: cefTRIAXone 1,000 MG in Water for inj. (sterile) 10 ML IVP SCH (08:25)
[2019-06-27] MEDS: Cyanocobalamin (B-12) 1,000 MCG TABLET PO SCH (08:25)
[2019-06-27] MEDS: Cholecalciferol (D-3) 1,000 UNIT (25MCG) TABLET PO SCH (08:25)
[2019-06-27] MEDS: Multivit/Ca/Min/Fe/FA 1 TAB TABLET PO SCH (08:25)
[2019-06-27] MEDS: Aspirin 81 MG TAB.CHEW PO SCH (08:25)
== END 2019-06-27 10:47 ==
LOC: 3BNU 13:37 → EMEROOARM 13:37 → 3BNU 17:31
PROVIDERS: ADMIT Internal Medicine; ATTEND Internal Medicine

== ENCOUNTER 2019-07-09 09:50 | Observation (INO) ==
[2019-07-09] MEDS ORDERED: Acetaminophen 325 MG TABLET PO ONE (10:01)
[2019-07-09 10:35] LABS: Basophils % 0.6 %; Eosinophils # 0.3 K/mcL (0.0-0.6); Eosinophils % 3.6 %; Hematocrit 39.4 % (35.3-44.9); Hemoglobin 13.2 g/dL (11.5-15.4); Immature Granulocytes % 0.1 % (0-4); Lymphocytes # 1.7 K/mcL (0.6-4.6); Lymphocytes % 25.4 %; Mean Corpuscular HGB Conc 33.5 g/dL (31.6-35.5); Mean Corpuscular Hemoglobin 30.1 pg (28.0-33.3); Mean Platelet Volume 10.6 fL (9.4-12.4); Monocytes # 0.6 K/mcL (0.0-1.3); Monocytes % 8.9 %; Neutrophils # 4.2 K/mcL (1.6-8.9); Platelet Count 282 K/mcL (140-400); Red Blood Count 4.38 M/mcL (3.82-4.97); Red Cell Distribution Width 12.5 % (11.5-14.5); Segmented Neutrophils % 61.4 %; White Blood Count 6.9 K/mcL (4.3-11.1)
[2019-07-09 10:59] LABS: Alanine Aminotransferase 23 Units/L (7-52); Albumin 4.1 g/dL (3.5-5.7); Albumin/Globulin Ratio 1.4 (1.1-2.2); Alkaline Phosphatase 55 Units/L (34-104); Aspartate Amino Transferase 20 Units/L (13-39); BUN/Creatinine Ratio 23 (6-26); Bilirubin,Total 0.6 mg/dL (0.3-1.0); Blood Urea Nitrogen 16 mg/dL (8-23); Calcium 9.7 mg/dL (8.6-10.3); Carbon Dioxide 24 mEq/L (23-29); Chloride 104 mEq/L (98-107); Glucose 114 mg/dL (70-105); Osmolality,Calculated 288 (280-300); Potassium 3.9 mEq/L (3.5-5.1); Sodium 138 mEq/L (136-145); Total Protein 7.1 g/dL (6.4-8.9); Troponin I < 0.03 ng/mL (< 0.04); eGFR For African Americans > 60 (> 60); eGFR For Non-African Americans > 60 (> 60)
[2019-07-09] MEDS ORDERED: Ondansetron 4 MG/2 ML VIAL IVP PRN (13:05)
[2019-07-09] MEDS ORDERED: Naloxone 0.4 MG/ML INJ IVP PRN (13:05)
[2019-07-09] MEDS ORDERED: MOM Conc 10 ML UD.LIQ PO PRN (14:00)
[2019-07-09] MEDS: Acetaminophen 325 MG TABLET PO SCH (20:05)
[2019-07-09] MEDS: *HR* Heparin 5,000 UNIT/ML VIAL SQ SCH (20:06)
[2019-07-10 03:20] LABS: Basophils # 0.1 K/mcL (0.0-0.2); Basophils % 0.8 %; Eosinophils # 0.6 K/mcL (0.0-0.6); Eosinophils % 6.8 %; Hematocrit 38.2 % (35.3-44.9); Hemoglobin 12.6 g/dL (11.5-15.4); Immature Granulocytes % 0.2 % (0-4); Lymphocytes # 1.6 K/mcL (0.6-4.6); Lymphocytes % 18.2 %; Mean Corpuscular Hemoglobin 29.8 pg (28.0-33.3); Mean Corpuscular Volume 90.3 fL (83.0-100.0); Mean Platelet Volume 11.3 fL (9.4-12.4); Monocytes # 0.8 K/mcL (0.0-1.3); Monocytes % 9.2 %; Neutrophils # 5.9 K/mcL (1.6-8.9); Platelet Count 267 K/mcL (140-400); Red Blood Count 4.23 M/mcL (3.82-4.97); Red Cell Distribution Width 12.6 % (11.5-14.5); Segmented Neutrophils % 64.8 %
[2019-07-10 03:40] LABS: BUN/Creatinine Ratio 26 (6-26); Blood Urea Nitrogen 17 mg/dL (8-23); Calcium 9.1 mg/dL (8.6-10.3); Carbon Dioxide 24 mEq/L (23-29); Chloride 105 mEq/L (98-107); Glucose 90 mg/dL (70-105); Osmolality,Calculated 287 (280-300); Potassium 4.2 mEq/L (3.5-5.1); Sodium 138 mEq/L (136-145); eGFR For African Americans > 60 (> 60); eGFR For Non-African Americans > 60 (> 60)
[2019-07-10] MEDS: *HR* Heparin 5,000 UNIT/ML VIAL SQ SCH ×2 (05:03→16:02)
[2019-07-10 07:12] VITALS: BP 139/74
[2019-07-10] MEDS: Acetaminophen 325 MG TABLET PO SCH (08:15)
[2019-07-10] MEDS ORDERED: Aspirin 81 MG TAB.CHEW PO SCH (09:00)
[2019-07-10] MEDS ORDERED: Cholecalciferol (D-3) 1,000 UNIT (25MCG) TABLET PO SCH (09:00)
[2019-07-10] MEDS ORDERED: Cyanocobalamin (B-12) 1,000 MCG TABLET PO SCH (09:00)
[2019-07-10] MEDS ORDERED: Multivit/Ca/Min/Fe/FA 1 TAB TABLET PO SCH (09:00)
[2019-07-10] MEDS ORDERED: amLODIPine 5 MG TABLET PO SCH (09:00)
== END 2019-07-10 17:46 | disposition home health service (06) ==
LOC: EMEROOARM 09:50 → 3BNU 09:50 → SUATTDRO 13:06 → 3BNU 14:30
PROVIDERS: ADMIT Family Medicine; ATTEND Internal Medicine